=== PATIENT | male | born 1955 | race Caucasian/White ===

== ENCOUNTER 2019-06-05 00:38 | Emergency (ER) | payer MEDICARE, OTHER ==
[~2019-06-05] VITALS: Ht 188 cm; Wt 63.5 kg
--- NOTE | 2019-06-05 01:07 | NUR ---
URINE COLLECTED AND SENT TO LAB. PT PLACED IN GOWN. BELONGINGS COLLECTED AND PLACED IN PATIENT LOCKER. SITTER AT BEDSIDE.
[2019-06-05 01:22] LABS: BASOPHILS # (AUTO) 0.1 /CMM (0.0-0.2); BASOPHILS % (AUTO) 1.1 % (0.0-2.0); EOSINOPHILS % (AUTO) 0.9 % (0.0-6.0); HEMATOCRIT 41 % (39-51); HEMOGLOBIN 13.7 g/dL (13.5-17.5); LYMPHOCYTES # (AUTO) 1.3 /CMM (0.8-4.8); LYMPHOCYTES % (AUTO) 17.8 % (20.0-44.0); MEAN CORPUSCULAR HGB CONC 34 g/dl (31.0-36.0); MEAN CORPUSCULAR VOLUME 90 fL (80-96); MONOCYTES # (AUTO) 0.7 /CMM (0.1-1.30); MONOCYTES % (AUTO) 9.5 % (2.0-12.0); NEUTROPHILS # (AUTO) 5.1 /CMM (1.8-8.9); NEUTROPHILS % (AUTO) 70.7 % (43.0-81.0); PLATELET COUNT (AUTO) 190 /CMM (150-450); RED BLOOD CELL COUNT(AUTO) 4.55 MIL/uL (4.5-6.0); WHITE BLOOD COUNT (AUTO) 7.2 K/uL (4.3-11.0)
--- NOTE | 2019-06-05 01:24 | NUR ---
SITTER AT BEDSIDE
[2019-06-05 01:26] LABS: APPEARANCE,URINE Clear (CLEAR); BILIRUBIN,URINE SMALL (NEGATIVE); BLOOD, URINE Negative Ery/uL (NEGATIVE); COLOR,URINE Yellow (YELLOW); KETONES,URINE Trace (NEGATIVE); LEUKOCYTE ESTERASE ,URINE Negative (NEGATIVE); NITRITE, URINE Negative (NEGATIVE); PH,URINE 6.5 (5.0-8.0); PROTEIN,URINE Trace mg/dl (NEGATIVE); UGLUCOSE Negative (NEGATIVE); UROBILINOGEN,URINE 0.2 EU/dL (0.2)
[2019-06-05] MEDS ORDERED: OLANZAPINE 5 MG TABLET PO ONE (01:30)
[2019-06-05 01:31] LABS: CREATININE 0.8 mg/dL (0.6-1.3)
[2019-06-05] MEDS ORDERED: OLANZAPINE 5 MG TABLET ONE (01:32)
--- NOTE | 2019-06-05 01:39 | NUR ---
PATIENT CAME FROM STREETS TO ER BED 10 C/O SUICIDAL IDEATION. PATIENT STATES THAT HE PLANS "TO DO HIMSELF IN BY DROWNING HIMSELF IN A SINK". AAOX4. NO SOB. BREATHING EVENLY AND UNLABORED. PATIENT STATES THAT HE IS NOT IN ANY DISTRESS. CONNECTED TO MONITOR.
[2019-06-05 01:45] LABS: BILIRUBIN,DIRECT 0.2 mg/dL (0.0-0.2); BILIRUBIN,TOTAL 0.6 mg/dL (0.2-1.0); TOTAL PROTEIN, SERUM 7.6 g/dL (6.4-8.2)
[2019-06-05 01:46] LABS: SALICYLATE 2.2 mg/dL (2.8-20.0)
[2019-06-05 03:21] LABS: BACTERIA,URINE Rare /HPF (None Seen); RBC,URINE 0-2 /HPF (0-2); SQUAMOUS EPITHELIAL CELL,UR Rare /HPF (None Seen); WBC,URINE 0-2 /HPF (0-3)
--- NOTE | 2019-06-05 03:49 | NUR ---
TRANSFER INFORMATION: PT [facility] ACCEPTING MD: DR. MARMOLEJO NUMBER FOR REPORT: [phone]
--- NOTE | 2019-06-05 03:50 | NUR ---
PATIENT IS ASLEEP. EASILY AROUSABLE. NOT IN ANY DISTRESS. CONNECTED TO MONITOR WITH SITTER IN FROM OF BED.
--- NOTE | 2019-06-05 04:02 | NUR ---
REPORT GIVEN TO RN AT UNIT 2 FOR IVONNE. Addendum: 06/05/19 at 0553 by SONNY NURSE NAME IS DEN Barber
--- NOTE | 2019-06-05 04:12 | NUR ---
CALLED [facility] FOR TRANSPORTATION. ETA 0156
[2019-06-05 05:20] VITALS: BP 132/66
--- NOTE | 2019-06-05 06:09 | NUR ---
JOHANNA ARRIVED ON SCENE TO TAKE PATIENT FOR TRANSFER AND IVONNE.
== END 2019-06-05 06:10 | disposition short-term general hospital (02) ==
LOC: ER 00:42
DX: F99 Mental disorder, not otherwise specified (principal); F10.10 Alcohol abuse, uncomplicated; F17.200 Nicotine dependence, unspecified, uncomplicated; F12.10 Cannabis abuse, uncomplicated; F14.10 Cocaine abuse, uncomplicated; Y90.0 Blood alcohol level of less than 20 mg/100 ml
CPT/HCPCS: 36415; 80048; 80076; 80305; 80307; 80329; 81001; 85025; 99285; G0480; 81000-TC

== ENCOUNTER 2019-06-19 00:49 | Emergency (ER) | payer MEDICARE, OTHER ==
[~2019-06-19] VITALS: Ht 182.9 cm; Wt 70.3 kg
[2019-06-19 01:05] LABS: BASOPHILS # (AUTO) 0.1 /CMM (0.0-0.2); BASOPHILS % (AUTO) 1.1 % (0.0-2.0); EOSINOPHILS % (AUTO) 1.7 % (0.0-6.0); HEMATOCRIT 41 % (39-51); HEMOGLOBIN 13.7 g/dL (13.5-17.5); LYMPHOCYTES # (AUTO) 1.4 /CMM (0.8-4.8); LYMPHOCYTES % (AUTO) 21.2 % (20.0-44.0); MEAN CORPUSCULAR HGB CONC 34 g/dl (31.0-36.0); MEAN CORPUSCULAR VOLUME 91 fL (80-96); MONOCYTES # (AUTO) 0.8 /CMM (0.1-1.30); MONOCYTES % (AUTO) 12.8 % (2.0-12.0); NEUTROPHILS # (AUTO) 4.1 /CMM (1.8-8.9); NEUTROPHILS % (AUTO) 63.2 % (43.0-81.0); PLATELET COUNT (AUTO) 220 /CMM (150-450); RED BLOOD CELL COUNT(AUTO) 4.51 MIL/uL (4.5-6.0); WHITE BLOOD COUNT (AUTO) 6.5 K/uL (4.3-11.0)
--- NOTE | 2019-06-19 01:05 | NUR ---
SUBSTANCE ABUSE TECHNICIAN AT BEDSIDE FOR LAB COLLECTION
--- NOTE | 2019-06-19 01:05 | NUR ---
BIBS.AAOX4. AMBULATORY C/O "+SI, WANT TO DROWN MYSELF LIKE MY FRIEND DID." RR EVEN AND UNLABORED. NO ACUTE DISTRESS NOTED.
--- NOTE | 2019-06-19 01:06 | NUR ---
PLACED IN GOWN AND BELONGINGS PLACED IN LOCKER
--- NOTE | 2019-06-19 01:13 | NUR ---
SECURITY CALLED FOR WANDING. PT CLEARED
[2019-06-19 01:14] LABS: CALCIUM, SERUM 9.2 mg/dL (8.5-10.1); CARBON DIOXIDE 31 mmol/L (21-32); CHLORIDE 102 mmol/L (98-107); CREATININE 0.9 mg/dL (0.6-1.3); GLUCOSE 95 mg/dL (74-106); POTASSIUM 4.4 mmol/L (3.5-5.1); SODIUM SERUM 137 mmol/L (136-145); UREA NITROGEN, BLOOD 16 mg/dL (7-18)
--- NOTE | 2019-06-19 01:16 | NUR ---
PLACED ON MONITOR AND PULSE OX. VSS.
--- NOTE | 2019-06-19 01:20 | NUR ---
URINE COLLECTED AND SENT TO LAB
[2019-06-19 01:26] LABS: APPEARANCE,URINE Clear (CLEAR); BILIRUBIN,URINE Negative (NEGATIVE); BLOOD, URINE Negative Ery/uL (NEGATIVE); COLOR,URINE Yellow (YELLOW); KETONES,URINE Trace (NEGATIVE); LEUKOCYTE ESTERASE ,URINE Negative (NEGATIVE); NITRITE, URINE Negative (NEGATIVE); PH,URINE 5.5 (5.0-8.0); PROTEIN,URINE Negative (NEGATIVE); UGLUCOSE Negative (NEGATIVE); UROBILINOGEN,URINE 0.2 EU/dL (0.2)
[2019-06-19 01:32] LABS: ALANINE AMINOTRANSFERASE 81 U/L (12-78); ALBUMIN 3.7 g/dL (3.4-5.0); ALCOHOL, BLOOD < 3 mg/dL (0-0); ALKALINE PHOSPHATASE 71 U/L (46-116); ASPARTATE AMINOTRANSFERASE 34 U/L (15-37); BILIRUBIN,DIRECT 0.2 mg/dL (0.0-0.2); BILIRUBIN,TOTAL 0.5 mg/dL (0.2-1.0); TOTAL PROTEIN, SERUM 7.6 g/dL (6.4-8.2)
[2019-06-19 01:38] LABS: ACETAMINOPHEN 0 ug/ml (10-30); SALICYLATE 2.3 mg/dL (2.8-20.0)
--- NOTE | 2019-06-19 01:44 | NUR ---
PT RESTING, VSS. EASILY AROUSED.
--- NOTE | 2019-06-19 04:08 | NUR ---
Pt accepted to [facility] by Dr Monae. # for report [phone]
--- NOTE | 2019-06-19 05:22 | NUR ---
Helga called for transport. eta >4 hrs.
--- NOTE | 2019-06-19 05:23 | NUR ---
Jamal called for transport. ETA 0103
--- NOTE | 2019-06-19 05:27 | NUR ---
Report given to Toi RAMIREZ for continuation of care.
[2019-06-19 06:17] VITALS: BP 105/64
--- NOTE | 2019-06-19 06:51 | NUR ---
Jamal at bedside for transport.
== END 2019-06-19 06:53 ==
LOC: ER 00:49
DX: R45.851 Suicidal ideations (principal); F10.10 Alcohol abuse, uncomplicated; F17.200 Nicotine dependence, unspecified, uncomplicated; F12.10 Cannabis abuse, uncomplicated; F14.10 Cocaine abuse, uncomplicated; Y90.0 Blood alcohol level of less than 20 mg/100 ml
CPT/HCPCS: 36415; 80048; 80076; 80305; 80307; 80329; 81001; 85025; 99285; G0480; 81000-TC

== ENCOUNTER 2019-07-08 22:50 | Emergency (ER) | payer MEDICARE, OTHER ==
[~2019-07-08] VITALS: Ht 188 cm; Wt 68.0 kg
--- NOTE | 2019-07-09 02:14 | NUR ---
BIBS W/ C/O SI AND PALN TO DROWN HIMSELF IN WATER. PT WAS GOWNED UP. ALL BELONGINGS WERE TAKEN IN SAFE . PLACED ON A MONITOR AND CLOSE OBSERVATION. WILL CONT TO MONITOR,
[2019-07-09 02:42] LABS: BASOPHILS # (AUTO) 0.1 /CMM (0.0-0.2); EOSINOPHILS % (AUTO) 2.6 % (0.0-6.0); HEMATOCRIT 39 % (39-51); HEMOGLOBIN 13.1 g/dL (13.5-17.5); LYMPHOCYTES # (AUTO) 1.3 /CMM (0.8-4.8); LYMPHOCYTES % (AUTO) 26.7 % (20.0-44.0); MEAN CORPUSCULAR HGB CONC 34 g/dl (31.0-36.0); MEAN CORPUSCULAR VOLUME 90 fL (80-96); MONOCYTES # (AUTO) 0.7 /CMM (0.1-1.30); MONOCYTES % (AUTO) 14.2 % (2.0-12.0); NEUTROPHILS # (AUTO) 2.8 /CMM (1.8-8.9); NEUTROPHILS % (AUTO) 55.5 % (43.0-81.0); PLATELET COUNT (AUTO) 181 /CMM (150-450)
[2019-07-09 02:47] LABS: APPEARANCE,URINE CLEAR (CLEAR); BILIRUBIN,URINE NEGATIVE (NEGATIVE); BLOOD, URINE NEGATIVE Ery/uL (NEGATIVE); COLOR,URINE YELLOW (YELLOW); KETONES,URINE NEGATIVE (NEGATIVE); LEUKOCYTE ESTERASE ,URINE NEGATIVE (NEGATIVE); NITRITE, URINE NEGATIVE (NEGATIVE); PH,URINE 5.5 (5.0-8.0); PROTEIN,URINE NEGATIVE (NEGATIVE); UGLUCOSE NEGATIVE (NEGATIVE); UROBILINOGEN,URINE 0.2 EU/dL (0.2)
[2019-07-09 02:50] LABS: CALCIUM, SERUM 8.4 mg/dL (8.5-10.1); CARBON DIOXIDE 32 mmol/L (21-32); CHLORIDE 101 mmol/L (98-107); CREATININE 1.2 mg/dL (0.6-1.3); GLUCOSE 130 mg/dL (74-106); POTASSIUM 3.8 mmol/L (3.5-5.1); SODIUM SERUM 138 mmol/L (136-145); UREA NITROGEN, BLOOD 21 mg/dL (7-18)
[2019-07-09 02:54] LABS: ACETAMINOPHEN 0 ug/ml (10-30); ALANINE AMINOTRANSFERASE 78 U/L (12-78); ALBUMIN 3.5 g/dL (3.4-5.0); ALCOHOL, BLOOD < 3 mg/dL (0-0); ALKALINE PHOSPHATASE 74 U/L (46-116); ASPARTATE AMINOTRANSFERASE 80 U/L (15-37); BILIRUBIN,DIRECT 0.2 mg/dL (0.0-0.2); BILIRUBIN,TOTAL 0.5 mg/dL (0.2-1.0); SALICYLATE 1.8 mg/dL (2.8-20.0); TOTAL PROTEIN, SERUM 6.8 g/dL (6.4-8.2)
--- NOTE | 2019-07-09 06:40 | NUR ---
PT IN BED SLEEPING. NAD NOTED. EASILY ARROUSABLE. 1:1 SITTER AT BEDSIDE
--- NOTE | 2019-07-09 08:25 | NUR ---
SALES SOLUTIONS REPRESENTATIVE followed up with [facility] intake regarding pt.being referred to them. Per Sheri in intake, there is no bed availability at this time, pending discharges.
--- NOTE | 2019-07-09 10:18 | NUR ---
CALLED [facility] FOR TRANSPORT TO [facility]. ETA 15 MINUTES.
--- NOTE | 2019-07-09 10:37 | NUR ---
FAX NUMBER FOR [facility]. [phone].
[2019-07-09 11:23] VITALS: BP 115/71
--- NOTE | 2019-07-09 11:26 | NUR ---
patient picked up by private ambulance going to [facility] in no distress.
== END 2019-07-09 11:26 ==
LOC: ER 23:04
DX: R45.851 Suicidal ideations (principal); F17.200 Nicotine dependence, unspecified, uncomplicated; Z98.890 Other specified postprocedural states
CPT/HCPCS: 36415; 80048; 80076; 80305; 80307; 80329; 81001; 85025; 99285; 99406; G0480; 81000-TC

== ENCOUNTER 2019-07-18 01:00 | Emergency (ER) | payer MEDICARE, OTHER ==
[~2019-07-18] VITALS: Ht 188 cm; Wt 68.0 kg
--- NOTE | 2019-07-18 01:05 | NUR ---
PT AAOX4. BIBSELF. C/O SI WITH PLAN TO DROWN SELF IN BUCKET OF WATER. DENIES HI. VSS. PLACED IN GOWN. BELONINGS PLACED IN LOCKER.
--- NOTE | 2019-07-18 01:52 | NUR ---
Ken valencia in [facility] - 07/18/19 at 0253 by STAN URINE COLLECTED AND SENT TO LAB
[2019-07-18 01:55] LABS: BASOPHILS # (AUTO) 0.1 /CMM (0.0-0.2); EOSINOPHILS % (AUTO) 0.2 % (0.0-6.0); HEMATOCRIT 47 % (39-51); HEMOGLOBIN 15.8 g/dL (13.5-17.5); LYMPHOCYTES # (AUTO) 1.6 /CMM (0.8-4.8); LYMPHOCYTES % (AUTO) 21.4 % (20.0-44.0); MEAN CORPUSCULAR HGB CONC 34 g/dl (31.0-36.0); MEAN CORPUSCULAR VOLUME 90 fL (80-96); MONOCYTES # (AUTO) 0.8 /CMM (0.1-1.30); NEUTROPHILS # (AUTO) 5.1 /CMM (1.8-8.9); NEUTROPHILS % (AUTO) 67.4 % (43.0-81.0); PLATELET COUNT (AUTO) 256 /CMM (150-450); RED BLOOD CELL COUNT(AUTO) 5.17 MIL/uL (4.5-6.0); WHITE BLOOD COUNT (AUTO) 7.6 K/uL (4.3-11.0)
[2019-07-18] MEDS ORDERED: LORAZEPAM 1 MG TABLET ONE (01:55)
[2019-07-18] MEDS ORDERED: ONDANSETRON 4 MG TAB.RAPDIS ONE (02:00)
[2019-07-18] MEDS ORDERED: ONDANSETRON 4 MG TAB.RAPDIS PO ONE (02:00)
[2019-07-18] MEDS ORDERED: LORAZEPAM 1 MG TABLET PO ONE (02:00)
[2019-07-18] MEDS ORDERED: OLANZAPINE 5 MG TABLET PO ONE (02:00)
[2019-07-18 02:06] LABS: CALCIUM, SERUM 10.2 mg/dL (8.5-10.1); CARBON DIOXIDE 29 mmol/L (21-32); CHLORIDE 100 mmol/L (98-107); GLUCOSE 118 mg/dL (74-106); POTASSIUM 4.1 mmol/L (3.5-5.1); SODIUM SERUM 141 mmol/L (136-145); UREA NITROGEN, BLOOD 19 mg/dL (7-18)
[2019-07-18 02:16] LABS: ACETAMINOPHEN 0 ug/ml (10-30); ALANINE AMINOTRANSFERASE 77 U/L (12-78); ALBUMIN 4.5 g/dL (3.4-5.0); ALCOHOL, BLOOD < 3 mg/dL (0-0); ALKALINE PHOSPHATASE 80 U/L (46-116); ASPARTATE AMINOTRANSFERASE 36 U/L (15-37); BILIRUBIN,DIRECT 0.3 mg/dL (0.0-0.2); BILIRUBIN,TOTAL 0.9 mg/dL (0.2-1.0); SALICYLATE 1.3 mg/dL (2.8-20.0); TOTAL PROTEIN, SERUM 8.8 g/dL (6.4-8.2)
--- NOTE | 2019-07-18 02:53 | NUR ---
URINE COLLECTED AND SENT TO LAB
[2019-07-18 03:52] LABS: APPEARANCE,URINE Clear (CLEAR); BILIRUBIN,URINE Negative (NEGATIVE); BLOOD, URINE Negative Ery/uL (NEGATIVE); COLOR,URINE Yellow (YELLOW); KETONES,URINE 80 (NEGATIVE); LEUKOCYTE ESTERASE ,URINE Negative (NEGATIVE); NITRITE, URINE Negative (NEGATIVE); PROTEIN,URINE 30 mg/dl (NEGATIVE); UGLUCOSE Negative (NEGATIVE); UROBILINOGEN,URINE 0.2 EU/dL (0.2)
[2019-07-18 04:14] LABS: BACTERIA,URINE Few /HPF (None Seen); RBC,URINE 0-2 /HPF (0-2); SQUAMOUS EPITHELIAL CELL,UR Rare /HPF (None Seen)
--- NOTE | 2019-07-18 06:15 | NUR ---
PT ASLEEP, NO ACUTE DISTRESS NOTED, RESP EVEN AND UNLABORED. CALL LIGHT WITHIN REACH. WILL CONTINUE TO MONITOR PT CLOSELY.
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
[2019-07-18 12:00] VITALS: BP 132/80
--- NOTE | 2019-07-18 12:00 | NUR ---
pt aaox4, pt denies any s/i or h/i, -sob, pt in stable condition, pt verbalizes wanting to leave, dr. shahid made aware. per . he will write d/c aci.
--- NOTE | 2019-07-18 12:15 | NUR ---
Patient discharged to home in stable condition. Written and verbal after care instructions given. Patient verbalizes understanding of instruction.
== END 2019-07-18 13:17 | disposition home or self-care (01) ==
LOC: ER 01:00
DX: F19.159 Other psychoactive substance abuse with psychoactive substance-induced psychotic disorder, unspecified (principal); R45.851 Suicidal ideations; F10.10 Alcohol abuse, uncomplicated; F17.200 Nicotine dependence, unspecified, uncomplicated; F12.10 Cannabis abuse, uncomplicated; F14.10 Cocaine abuse, uncomplicated; Y90.0 Blood alcohol level of less than 20 mg/100 ml; Z98.890 Other specified postprocedural states
CPT/HCPCS: 36415; 80048; 80076; 80305; 80307; 80329; 81001; 85025; 99284; G0480; Q0162; 81000-TC

== ENCOUNTER 2019-07-18 21:04 | Emergency (ER) | payer MEDICARE, OTHER ==
[~2019-07-18] VITALS: Ht 188 cm; Wt 68.0 kg
--- NOTE | 2019-07-18 21:05 | NUR ---
TO ER BED 14 AMBULATORY C/O SI WITH PLAN TO "DROWN SELF WITH 12OZ OF WATER". PT CALM AND COOPERATIVE AT THIS TIME. PLACE PT ON HOSPITAL GOWN, ALL BELONGINGS REMOVED FROM ROOM AND BELONGIGNS PLACED IN HOSPITAL LOCKER. 1:1 SITTER AT BEDSIDE FOR PT SAFETY.
--- NOTE | 2019-07-18 22:30 | NUR ---
LAB SYSTEMS ANALYST AT BEDSIDE FOR BLOOD DRAW.
[2019-07-18 22:35] LABS: BASOPHILS # (AUTO) 0.1 /CMM (0.0-0.2); BASOPHILS % (AUTO) 0.9 % (0.0-2.0); EOSINOPHILS % (AUTO) 0.3 % (0.0-6.0); HEMATOCRIT 45 % (39-51); HEMOGLOBIN 14.9 g/dL (13.5-17.5); LYMPHOCYTES # (AUTO) 1.7 /CMM (0.8-4.8); LYMPHOCYTES % (AUTO) 23.5 % (20.0-44.0); MEAN CORPUSCULAR HGB CONC 34 g/dl (31.0-36.0); MEAN CORPUSCULAR VOLUME 91 fL (80-96); MONOCYTES # (AUTO) 0.8 /CMM (0.1-1.30); MONOCYTES % (AUTO) 10.4 % (2.0-12.0); NEUTROPHILS # (AUTO) 4.7 /CMM (1.8-8.9); NEUTROPHILS % (AUTO) 64.9 % (43.0-81.0); PLATELET COUNT (AUTO) 236 /CMM (150-450); RED BLOOD CELL COUNT(AUTO) 4.88 MIL/uL (4.5-6.0); WHITE BLOOD COUNT (AUTO) 7.2 K/uL (4.3-11.0)
--- NOTE | 2019-07-18 22:39 | NUR ---
URINE SAMPLE COLLECTED AND SENT TO LAB.
[2019-07-18 22:43] LABS: CALCIUM, SERUM 9.4 mg/dL (8.5-10.1); CARBON DIOXIDE 33 mmol/L (21-32); CHLORIDE 99 mmol/L (98-107); GLUCOSE 95 mg/dL (74-106); POTASSIUM 3.4 mmol/L (3.5-5.1); SODIUM SERUM 137 mmol/L (136-145); UREA NITROGEN, BLOOD 18 mg/dL (7-18)
[2019-07-18 22:46] LABS: APPEARANCE,URINE Clear (CLEAR); BILIRUBIN,URINE SMALL (NEGATIVE); BLOOD, URINE Negative Ery/uL (NEGATIVE); COLOR,URINE Yellow (YELLOW); KETONES,URINE Trace (NEGATIVE); LEUKOCYTE ESTERASE ,URINE Negative (NEGATIVE); NITRITE, URINE Negative (NEGATIVE); PH,URINE 5.5 (5.0-8.0); PROTEIN,URINE 30 mg/dl (NEGATIVE); UGLUCOSE Negative (NEGATIVE)
[2019-07-18 22:51] LABS: ALANINE AMINOTRANSFERASE 70 U/L (12-78); ALBUMIN 4.1 g/dL (3.4-5.0); ALCOHOL, BLOOD < 3 mg/dL (0-0); ALKALINE PHOSPHATASE 76 U/L (46-116); ASPARTATE AMINOTRANSFERASE 30 U/L (15-37); BILIRUBIN,DIRECT 0.2 mg/dL (0.0-0.2); BILIRUBIN,TOTAL 0.6 mg/dL (0.2-1.0); TOTAL PROTEIN, SERUM 8.2 g/dL (6.4-8.2)
[2019-07-18 23:19] LABS: SALICYLATE 1.4 mg/dL (2.8-20.0)
[2019-07-18 23:28] LABS: BACTERIA,URINE Few /HPF (None Seen); RBC,URINE 0-2 /HPF (0-2); SQUAMOUS EPITHELIAL CELL,UR Rare /HPF (None Seen)
--- NOTE | 2019-07-19 02:38 | NUR ---
PT ASLEEP, NO ACUTE DISTRESS NOTED, RESP EVEN AND UNLABORED. CALL LIGHT WITHIN REACH. WILL CONTINEU TO MONITOR PT CLOSELY.
--- NOTE | 2019-07-19 03:52 | NUR ---
PT [facility]PTED TO [facility] BY DR MARMOLEJO. UNIT 1. BED AVAILABLE AFTER 07. # FOR REPORT [phone]
--- NOTE | 2019-07-19 04:33 | NUR ---
PT AAOX4, NO ACUTE DISTRESS NOTED, RESP EVEN AND UNLABORED. CALL LIGHT WITHIN REACH. WILL CONT TO MONITOR PT CLOSELY.
--- NOTE | 2019-07-19 06:29 | NUR ---
JOH[facility] ETA 08
[2019-07-19] MEDS ORDERED: ONDANSETRON 4 MG TAB.RAPDIS ONE (08:22)
[2019-07-19] MEDS: ONDANSETRON 4 MG TAB.RAPDIS SL ONE (08:33)
--- NOTE | 2019-07-19 08:33 | NUR ---
Patient picked up by [facility] Unit 43 in stable condition. Patient will be brought to [facility]. Written and verbal after care instructions given. Patient verbalizes understanding of instruction.
[2019-07-19 08:34] VITALS: BP 162/96
== END 2019-07-19 08:35 ==
LOC: ER 21:07
DX: R45.851 Suicidal ideations (principal); F19.10 Other psychoactive substance abuse, uncomplicated; F17.200 Nicotine dependence, unspecified, uncomplicated; Z98.890 Other specified postprocedural states
CPT/HCPCS: 36415; 80048; 80076; 80305; 80307; 80329; 81001; 85025; 87086; 99285; G0480; Q0162; 81000-TC

== ENCOUNTER 2019-10-01 00:49 | Emergency (ER) | payer MEDICARE, OTHER ==
[~2019-10-01] VITALS: Ht 188 cm; Wt 68.0 kg
--- NOTE | 2019-10-01 01:07 | NUR ---
PATIENT CAME TO ER BED 11 C/O SUICIDAL IDEATION PLANS TO CHOKE HIMSELF WITH PEPSI CAN. PATIENT'S BELONGING AND CLOTHINGS ARE REMOVED AND PLACED INTO A LOCKER. PATIENT IS CHANGED INTO A GOWN. AAOX3. NO SOB. BREATHING EVENLY AND UNLABORED ON ROOM AIR. CONNECTED TO MONITOR. SITTER AT BEDSIDE.
--- NOTE | 2019-10-01 01:17 | NUR ---
ENVIRONMENTAL TECHNICAL OFFICER AT BEDSIDE FOR BLOOD DRAW.
--- NOTE | 2019-10-01 01:18 | NUR ---
Ken valencia in [facility] - 10/01/19 at 0120 by MARIA DE JESUS MEDICATION MANAGER AT BEDSIDE FOR BLOOD DRAW
[2019-10-01 01:21] LABS: BASOPHILS # (AUTO) 0.2 /CMM (0.0-0.2); BASOPHILS % (AUTO) 2.2 % (0.0-2.0); EOSINOPHILS % (AUTO) 1.4 % (0.0-6.0); HEMATOCRIT 42 % (39-51); LYMPHOCYTES # (AUTO) 1.4 /CMM (0.8-4.8); LYMPHOCYTES % (AUTO) 19.5 % (20.0-44.0); MEAN CORPUSCULAR HGB CONC 33 g/dl (31.0-36.0); MEAN CORPUSCULAR VOLUME 89 fL (80-96); MONOCYTES # (AUTO) 0.9 /CMM (0.1-1.30); MONOCYTES % (AUTO) 12.1 % (2.0-12.0); NEUTROPHILS # (AUTO) 4.6 /CMM (1.8-8.9); NEUTROPHILS % (AUTO) 64.8 % (43.0-81.0); PLATELET COUNT (AUTO) 184 /CMM (150-450); RED BLOOD CELL COUNT(AUTO) 4.71 MIL/uL (4.5-6.0); WHITE BLOOD COUNT (AUTO) 7.1 K/uL (4.3-11.0)
[2019-10-01 01:28] LABS: CALCIUM, SERUM 9.1 mg/dL (8.5-10.1); CREATININE 0.9 mg/dL (0.6-1.3); POTASSIUM 3.5 mmol/L (3.5-5.1)
[2019-10-01 01:33] LABS: BILIRUBIN,DIRECT 0.3 mg/dL (0.0-0.2); BILIRUBIN,TOTAL 0.7 mg/dL (0.2-1.0); SALICYLATE 0.7 mg/dL (2.8-20.0)
[2019-10-01 01:46] LABS: APPEARANCE,URINE Clear (CLEAR); BILIRUBIN,URINE SMALL (NEGATIVE); BLOOD, URINE Negative Ery/uL (NEGATIVE); KETONES,URINE 15 (NEGATIVE); LEUKOCYTE ESTERASE ,URINE Negative (NEGATIVE); NITRITE, URINE Negative (NEGATIVE); PROTEIN,URINE 100 mg/dl (NEGATIVE); UGLUCOSE Negative (NEGATIVE)
[2019-10-01 02:17] LABS: COLOR,URINE DARK YELLOW (YELLOW)
[2019-10-01 02:18] LABS: BACTERIA,URINE None seen /HPF (None Seen); CALCIUM OXALATE CRYSTALS,UR Few /HPF (None Seen); RBC,URINE 0-2 /HPF (0-2); SQUAMOUS EPITHELIAL CELL,UR Few /HPF (None Seen); URINE AMORPHOUS URATE Few /HPF (None Seen); WBC,URINE 0-2 /HPF (0-3)
[2019-10-01 02:19] LABS: MUCUS,URINE Few /LPF (None Seen); SPERM,URINE Many /HPF (None Seen)
--- NOTE | 2019-10-01 02:23 | NUR ---
PATIENT AMBULATED TO THE RESTROOM WITH STEADY GAIT.
[2019-10-01] MEDS ORDERED: LORAZEPAM 1 MG TABLET PO ONE (03:00)
[2019-10-01] MEDS ORDERED: LORAZEPAM 1 MG TABLET ONE (03:25)
--- NOTE | 2019-10-01 03:36 | NUR ---
PT ACC[facility]PTED [facility] ACCEPTING MD: DR. MARMOLEJO NUMBER FOR REPORT: [phone] PER CJ FROM [facility] INTAKE, REQUESTING TO SEND PT TO FACILITY AFTER 0700
--- NOTE | 2019-10-01 03:43 | NUR ---
CALLED [facility] FOR TRANSPORTATION. HIDE TANNER 0700
--- NOTE | 2019-10-01 07:51 | NUR ---
Patient left the facility in stable condition. Needs attended. Report given to EMT.
[2019-10-01 07:52] VITALS: BP 101/69
== END 2019-10-01 07:52 ==
LOC: ER 00:49
DX: R45.851 Suicidal ideations (principal); F19.10 Other psychoactive substance abuse, uncomplicated; F32.9 Major depressive disorder, single episode, unspecified; Z98.890 Other specified postprocedural states
CPT/HCPCS: 36415; 80048; 80076; 80305; 80307; 80329; 81001; 85025; 99285; G0480; 81000-TC

== ENCOUNTER 2019-10-12 02:54 | Emergency (ER) | payer MEDICARE, OTHER ==
--- NOTE | 2019-10-12 03:47 | NUR ---
CALLED PT TO BE TRIAGED. PT STATES "I DON'T NEED A DOCTOR, I JUST WANT TO WAIT IN THE WAITING ROOM UNTIL THE MORNING"
== END 2019-10-12 03:55 | disposition left against medical advice (07) ==
LOC: ER 02:54
DX: Z53.21 Procedure and treatment not carried out due to patient leaving prior to being seen by health care provider (principal)

== ENCOUNTER 2019-10-14 23:01 | Emergency (ER) | payer MEDICARE, OTHER ==
[~2019-10-14] VITALS: Ht 188 cm; Wt 68.0 kg
--- NOTE | 2019-10-14 23:06 | NUR ---
PT CAME TO THE C/O SUICIDAL IDEATION W A PLAN TO DROWN HIMSELF. PT DENIES HI. PT ADMITS TO COCAINE USE YESTERDAY. PT CHANGED INTO GOWN, BELONGINGS PLACED TO THE LOCKER, PLACED ON SAFETY PRECAUTIONS. SITTER AT BEDSIDE FOR CONSTANT OBSERVATION
[2019-10-15 00:10] LABS: BASOPHILS # (AUTO) 0.1 /CMM (0.0-0.2); BASOPHILS % (AUTO) 0.7 % (0.0-2.0); EOSINOPHILS % (AUTO) 0.5 % (0.0-6.0); HEMATOCRIT 45 % (39-51); HEMOGLOBIN 15.2 g/dL (13.5-17.5); LYMPHOCYTES # (AUTO) 1.4 /CMM (0.8-4.8); LYMPHOCYTES % (AUTO) 20.5 % (20.0-44.0); MEAN CORPUSCULAR HGB CONC 34 g/dl (31.0-36.0); MEAN CORPUSCULAR VOLUME 89 fL (80-96); MONOCYTES # (AUTO) 0.7 /CMM (0.1-1.30); MONOCYTES % (AUTO) 9.7 % (2.0-12.0); NEUTROPHILS # (AUTO) 4.8 /CMM (1.8-8.9); NEUTROPHILS % (AUTO) 68.6 % (43.0-81.0); PLATELET COUNT (AUTO) 225 /CMM (150-450); RED BLOOD CELL COUNT(AUTO) 5.03 MIL/uL (4.5-6.0)
--- NOTE | 2019-10-15 00:10 | NUR ---
DISTRIBUTING CLERK AT BEDSIDE FOR BLOOD DRAW
[2019-10-15 00:29] LABS: CALCIUM, SERUM 9.6 mg/dL (8.5-10.1); CARBON DIOXIDE 32 mmol/L (21-32); CHLORIDE 97 mmol/L (98-107); GLUCOSE 124 mg/dL (74-106); POTASSIUM 4.1 mmol/L (3.5-5.1); SODIUM SERUM 136 mmol/L (136-145); UREA NITROGEN, BLOOD 11 mg/dL (7-18)
[2019-10-15 00:33] LABS: ALANINE AMINOTRANSFERASE 68 U/L (12-78); ALBUMIN 4.3 g/dL (3.4-5.0); ALKALINE PHOSPHATASE 83 U/L (46-116); ASPARTATE AMINOTRANSFERASE 33 U/L (15-37); BILIRUBIN,DIRECT 0.2 mg/dL (0.0-0.2); BILIRUBIN,TOTAL 0.8 mg/dL (0.2-1.0); TOTAL PROTEIN, SERUM 8.8 g/dL (6.4-8.2)
[2019-10-15 00:34] LABS: ACETAMINOPHEN 0 ug/ml (10-30); ALCOHOL, BLOOD < 3 mg/dL (0-0); SALICYLATE 0.9 mg/dL (2.8-20.0)
[2019-10-15] MEDS ORDERED: ONDANSETRON 4 MG TAB.RAPDIS ONE (01:19)
[2019-10-15] MEDS ORDERED: ONDANSETRON 4 MG TAB.RAPDIS SL ONE (01:30)
[2019-10-15] MEDS ORDERED: MAGNESIUM HYDROXIDE 30 ML UDC ONE (01:58)
[2019-10-15] MEDS ORDERED: MAGNESIUM HYDROXIDE 30 ML UDC PO ONE (02:00)
--- NOTE | 2019-10-15 03:34 | NUR ---
PT STILL UNABLE TO PROVIDE URINE SAMPLE AT THIS TIME. MD ZAMUDIO
[2019-10-15 04:22] VITALS: BP 151/74
--- NOTE | 2019-10-15 04:22 | NUR ---
URINE COLLECTED AND SENT TO LAB
[2019-10-15 04:43] LABS: APPEARANCE,URINE Clear (CLEAR); BILIRUBIN,URINE MODERATE (NEGATIVE); BLOOD, URINE Negative Ery/uL (NEGATIVE); COLOR,URINE Dark (YELLOW); KETONES,URINE 40 (NEGATIVE); LEUKOCYTE ESTERASE ,URINE Negative (NEGATIVE); NITRITE, URINE Negative (NEGATIVE); PROTEIN,URINE 100 mg/dl (NEGATIVE); UGLUCOSE Negative (NEGATIVE)
[2019-10-15 04:59] LABS: BACTERIA,URINE None seen /HPF (None Seen); RBC,URINE 0-2 /HPF (0-2); SQUAMOUS EPITHELIAL CELL,UR Few /HPF (None Seen); WBC,URINE 0-2 /HPF (0-3)
--- NOTE | 2019-10-15 05:15 | NUR ---
Note annie in ED - 10/15/19 at 0515 by MANE PT ASLEEP, NO ACUTE DISTRESS NOTED, RESP EVEN AND UNLABORED. CALL LIGHT WITHIN REACH. WILL CON
--- NOTE | 2019-10-15 05:15 | NUR ---
PT ASLEEP, NO ACUTE DISTRESS NOTED, RESP EVEN AND UNLABORED. CALL LIGHT WITHIN REACH. WILL CONTINUE TO MONITOR PT CLOSELY. 1:1 SITTER AT BEDSIDE.
--- NOTE | 2019-10-15 08:54 | NUR ---
Social service consult requested by MD for voluntary psychiatric admission. Upon chart review and MD notes, pt is a 64-year-old male who would like to go to a voluntary psychiatric hospital and states he is suicidal with a plan to drown himself, abuses cocaine with last use yesterday, and reports helplessness and hopelessness. TRAFFIC CONTROL SIGNALER met with the pt bedside. TRAFFIC CONTROL SIGNALER introduced self and explained the purpose of the visit. Pt is alert and oriented x 4. Pt appears disheveled. Pt's mood is congruent. Pt states he is homeless and has been for the past 5 years. Pt received SSI and SSDI monthly. Pt has a history of psychiatric illness and hospitalizations. Per pt. he has a history of Depression, Schizophrenia and Bipolar. Pt' s current medications include Seroquel. Pt has a history of drug use and abuses cocaine and alcohol. Pt reports to have drank two 16 oz bottles of wine. Pt. last used cocaine 3 days ago. Pt reports to have suicidal ideations with a plan to drown himself. TRAFFIC CONTROL SIGNALER to refer pt to [facility] for voluntary psychiatric admission. Pt smokes up to 25 cigarettes per day. TRAFFIC CONTROL SIGNALER contacted Cruz at [facility] and referred pt for voluntary admission. Clinicals faxed to [facility] intake dept.
--- NOTE | 2019-10-15 10:12 | NUR ---
RECIEVED A CALL FROM MERGED WITH [facility] FROM [facility]. PT HAS BEEN ACCEPTED BUT WAITING FOR MORNING DISCHARGES BEFORE PROVIDING BED NUMBERS. WILL CALL BACK WHEN ITS A GOOD TIME TO GIVE REPORT.
--- NOTE | 2019-10-15 10:16 | NUR ---
GOT OFF THE PHONE WITH FRAN FROM [facility]. PT WILL BE GOING TO ROOM 203B. UNIT . ASK TO BE CONNECTED TO UNIT [address] EL[address]ALDE AND DR. MARMOLEJO ARE THE ACCEPTING.
--- NOTE | 2019-10-15 12:01 | NUR ---
CALLED [facility] FOR TRANSPORT TO [facility]. ETA 1330.
--- NOTE | 2019-10-15 14:21 | NUR ---
[facility]
== END 2019-10-15 14:23 ==
LOC: ER 23:02
DX: F32.9 Major depressive disorder, single episode, unspecified (principal); R45.851 Suicidal ideations; F14.10 Cocaine abuse, uncomplicated; R11.0 Nausea; F17.210 Nicotine dependence, cigarettes, uncomplicated; Z98.890 Other specified postprocedural states
CPT/HCPCS: 36415; 80048; 80076; 80305; 80307; 80329; 81001; 85025; 99285; 99406; G0480; J7030; Q0162; 81000-TC

== ENCOUNTER 2019-11-07 01:39 | Emergency (ER) | payer MEDICARE, OTHER ==
[~2019-11-07] VITALS: Ht 188 cm; Wt 79.8 kg
--- NOTE | 2019-11-07 01:50 | NUR ---
PT CAME TO THE ED C/O SI W/ A PLAN TO DROWN HIMSELF. PT AAOX3, RESPPIRATIONS EVEN AND UNLABORED ON RA W/ NAD NOTED. PT CHANGED INTO GOWN, BELONGINGS TO LOCKER, AND PT PLACED ON SUICIDE PRECAUTIONS. SITTER AT BEDSIDE FOR SAFETY
--- NOTE | 2019-11-07 02:03 | NUR ---
URINE COLLECTED AND SENT TO LAB
[2019-11-07 02:19] LABS: APPEARANCE,URINE Clear (CLEAR); BILIRUBIN,URINE MODERATE (NEGATIVE); BLOOD, URINE Negative Ery/uL (NEGATIVE); COLOR,URINE Yellow (YELLOW); KETONES,URINE Trace (NEGATIVE); LEUKOCYTE ESTERASE ,URINE Negative (NEGATIVE); NITRITE, URINE Negative (NEGATIVE); PH,URINE 5.5 (5.0-8.0); PROTEIN,URINE 30 mg/dl (NEGATIVE); UGLUCOSE Negative (NEGATIVE); UROBILINOGEN,URINE 0.2 EU/dL (0.2)
[2019-11-07 02:33] LABS: BASOPHILS # (AUTO) 0.1 /CMM (0.0-0.2); BASOPHILS % (AUTO) 1.1 % (0.0-2.0); EOSINOPHILS % (AUTO) 2.6 % (0.0-6.0); HEMATOCRIT 44 % (39-51); HEMOGLOBIN 14.9 g/dL (13.5-17.5); LYMPHOCYTES % (AUTO) 15.3 % (20.0-44.0); MEAN CORPUSCULAR HGB CONC 34 g/dl (31.0-36.0); MEAN CORPUSCULAR VOLUME 88 fL (80-96); MONOCYTES # (AUTO) 0.9 /CMM (0.1-1.30); MONOCYTES % (AUTO) 13.1 % (2.0-12.0); NEUTROPHILS # (AUTO) 4.6 /CMM (1.8-8.9); NEUTROPHILS % (AUTO) 67.9 % (43.0-81.0); PLATELET COUNT (AUTO) 199 /CMM (150-450); RED BLOOD CELL COUNT(AUTO) 4.99 MIL/uL (4.5-6.0); WHITE BLOOD COUNT (AUTO) 6.7 K/uL (4.3-11.0)
[2019-11-07 02:35] LABS: BACTERIA,URINE Few /HPF (None Seen); CALCIUM OXALATE CRYSTALS,UR Moderate /HPF (None Seen); RBC,URINE 0-2 /HPF (0-2); SQUAMOUS EPITHELIAL CELL,UR Rare /HPF (None Seen)
[2019-11-07 02:45] LABS: ALANINE AMINOTRANSFERASE 150 U/L (12-78); ALBUMIN 4.2 g/dL (3.4-5.0); ALCOHOL, BLOOD < 3 mg/dL (0-0); ALKALINE PHOSPHATASE 74 U/L (46-116); ASPARTATE AMINOTRANSFERASE 108 U/L (15-37); BILIRUBIN,DIRECT 0.3 mg/dL (0.0-0.2); BILIRUBIN,TOTAL 0.7 mg/dL (0.2-1.0); CALCIUM, SERUM 9.2 mg/dL (8.5-10.1); CARBON DIOXIDE 31 mmol/L (21-32); CHLORIDE 97 mmol/L (98-107); CREATININE 1.2 mg/dL (0.6-1.3); GLUCOSE 114 mg/dL (74-106); POTASSIUM 4.1 mmol/L (3.5-5.1); SODIUM SERUM 137 mmol/L (136-145); TOTAL PROTEIN, SERUM 7.7 g/dL (6.4-8.2); UREA NITROGEN, BLOOD 17 mg/dL (7-18)
[2019-11-07 02:49] LABS: ACETAMINOPHEN 0 ug/ml (10-30); SALICYLATE 2.5 mg/dL (2.8-20.0)
[2019-11-07] MEDS ORDERED: OLANZAPINE 5 MG TABLET PO ONE (03:00)
[2019-11-07] MEDS ORDERED: LORAZEPAM 1 MG TABLET PO ONE (03:00)
[2019-11-07] MEDS ORDERED: LORAZEPAM 1 MG TABLET ONE (03:02)
[2019-11-07] MEDS ORDERED: OLANZAPINE 5 MG TABLET ONE (03:02)
--- NOTE | 2019-11-07 03:18 | NUR ---
DR YIN AT BEDSIDE
--- NOTE | 2019-11-07 03:22 | NUR ---
CLINICAL FAXED TO [facility] FOR VOLUNTARY ADMISSION.
--- NOTE | 2019-11-07 04:35 | NUR ---
SPOKE W/ ROSA ELENA FOR MORE CLINICAL INFORMATION. ROSA ELENA FROM [facility] WILL CALL BACK IF THEY WILL ACCEPT THE PATIENT.
--- NOTE | 2019-11-07 05:26 | NUR ---
pt got accepted and [facility] by Dr. Monae in unit 1 # for report: [phone] CM: [phone]
--- NOTE | 2019-11-07 06:35 | NUR ---
PT SLEEPING AND RESTING COMFORTABLY. NO ACUTE DISTRESS NOTED. WILL CONTINUE TO MONITOR. SITTER AT BEDSIDE
--- NOTE | 2019-11-07 07:58 | NUR ---
REPORT GIVEN TO CAROLYN. AWAITING HOSPITAL TRANSPORT.
--- NOTE | 2019-11-07 08:13 | NUR ---
CALLED [facility] FOR TRANSPORT TO [facility]. ETA 30 MINUTES.
--- NOTE | 2019-11-07 09:04 | NUR ---
REPORT GIVEN TO BIODIESEL PRODUCTION ASSOCIATE. PATIENT A/OX4, BREATHING EVEN AND UNLABORED, NO SOB NOTED. STABLE CONDITION. LEFT THE FACILITY AND TRANSFERRED TO [facility].
[2019-11-07 09:05] VITALS: BP 126/74
== END 2019-11-07 09:05 ==
LOC: ER 01:41
DX: F15.10 Other stimulant abuse, uncomplicated (principal); F32.9 Major depressive disorder, single episode, unspecified; R45.851 Suicidal ideations; F14.10 Cocaine abuse, uncomplicated; R45.1 Restlessness and agitation; F17.210 Nicotine dependence, cigarettes, uncomplicated; Z59.0 Homelessness; Z98.890 Other specified postprocedural states
CPT/HCPCS: 36415; 80048; 80076; 80305; 80307; 80329; 81001; 85025; 87086; 99285; 99406; G0480; 81000-TC

== ENCOUNTER 2019-11-29 01:58 | Inpatient (IN) | payer MEDICARE, OTHER ==
[~2019-11-29] VITALS: Ht 190.5 cm; Wt 64.6 kg
--- NOTE | 2019-11-29 02:00 | NUR ---
TO ER BED 13 AMBULATORY C/O SI WITH PLAN TO DROWN SELF WITH A BOTTLE OF WATER. DENIES HI. PT AAOX4 NO ACUTE DISTRESS NOTED, RESP EVEN AND UNLABORED. PLACE PT ON HOSPITAL GOWN, ALL BELONGINGS REMOVED FROM ROOM AND PLACED IN HOSPITAL LOCKER. 1:1 SITTER AT BEDSIDE FOR PT SAFETY.
--- NOTE | 2019-11-29 02:25 | NUR ---
URINE SAMPLE COLLECTED AND SENT TO LAB.
[2019-11-29 02:36] LABS: APPEARANCE,URINE CLEAR (CLEAR); BILIRUBIN,URINE NEGATIVE (NEGATIVE); BLOOD, URINE NEGATIVE Ery/uL (NEGATIVE); COLOR,URINE YELLOW (YELLOW); KETONES,URINE NEGATIVE (NEGATIVE); LEUKOCYTE ESTERASE ,URINE NEGATIVE (NEGATIVE); NITRITE, URINE NEGATIVE (NEGATIVE); PROTEIN,URINE 30 mg/dl (NEGATIVE); UGLUCOSE NEGATIVE (NEGATIVE); UROBILINOGEN,URINE 0.2 EU/dL (0.2)
[2019-11-29 02:37] LABS: BASOPHILS # (AUTO) 0.1 /CMM (0.0-0.2); BASOPHILS % (AUTO) 1.2 % (0.0-2.0); EOSINOPHILS % (AUTO) 1.3 % (0.0-6.0); HEMATOCRIT 46 % (39-51); HEMOGLOBIN 15.3 g/dL (13.5-17.5); LYMPHOCYTES # (AUTO) 1.5 /CMM (0.8-4.8); LYMPHOCYTES % (AUTO) 25.4 % (20.0-44.0); MEAN CORPUSCULAR HGB CONC 33 g/dl (31.0-36.0); MEAN CORPUSCULAR VOLUME 89 fL (80-96); MONOCYTES # (AUTO) 0.7 /CMM (0.1-1.30); MONOCYTES % (AUTO) 11.3 % (2.0-12.0); NEUTROPHILS # (AUTO) 3.6 /CMM (1.8-8.9); NEUTROPHILS % (AUTO) 60.8 % (43.0-81.0); PLATELET COUNT (AUTO) 234 /CMM (150-450); RED BLOOD CELL COUNT(AUTO) 5.19 MIL/uL (4.5-6.0); WHITE BLOOD COUNT (AUTO) 5.9 K/uL (4.3-11.0)
[2019-11-29 02:43] LABS: RBC,URINE 0-2 /HPF (0-2)
[2019-11-29 02:44] LABS: BACTERIA,URINE Few /HPF (None Seen); CALCIUM, SERUM 9.5 mg/dL (8.5-10.1); CARBON DIOXIDE 31 mmol/L (21-32); CHLORIDE 98 mmol/L (98-107); CREATININE 1.5 mg/dL (0.6-1.3); GLUCOSE 110 mg/dL (74-106); POTASSIUM 3.5 mmol/L (3.5-5.1); SODIUM SERUM 137 mmol/L (136-145); SQUAMOUS EPITHELIAL CELL,UR Rare /HPF (None Seen); UREA NITROGEN, BLOOD 23 mg/dL (7-18)
[2019-11-29 02:49] LABS: ALANINE AMINOTRANSFERASE 68 U/L (12-78); ALBUMIN 4.2 g/dL (3.4-5.0); ALKALINE PHOSPHATASE 82 U/L (46-116); ASPARTATE AMINOTRANSFERASE 43 U/L (15-37); BILIRUBIN,DIRECT 0.2 mg/dL (0.0-0.2); BILIRUBIN,TOTAL 0.6 mg/dL (0.2-1.0)
[2019-11-29 02:50] LABS: ACETAMINOPHEN 0 ug/ml (10-30); ALCOHOL, BLOOD < 3 mg/dL (0-0); SALICYLATE 1.9 mg/dL (2.8-20.0)
--- NOTE | 2019-11-29 03:58 | NUR ---
Patient is resting comfortably in bed with eyes closed. Easily aroused. VSS.
--- NOTE | 2019-11-29 05:17 | NUR ---
PT RESTING COMFORTABLE. VSS. PROVIDED WITH BLANKET.
--- NOTE | 2019-11-29 05:37 | NUR ---
CLINICAL FAXED TO [facility] FOR VOLUNTARY PSYCH ADMISSION.
--- NOTE | 2019-11-29 06:06 | NUR ---
PT ASLEEP, NO ACUTE DISTRESS NOTED, RESP EVEN AND UNLABORED. NO PAIN OR DISCOMFORT NOTED. CALL LIGHT WITHIN REACH. 1:1 SITTER REMAINS AT BEDSIDE.
--- NOTE | 2019-11-29 06:20 | NUR ---
TRANSFER INFO: ACCEPTING DR: JALEEL AND TONIO ROOM # UPON REPORT [phone]
--- NOTE | 2019-11-29 06:27 | NUR ---
REPORT GIVEN, SHARON RAMIREZ [facility]
--- NOTE | 2019-11-29 06:31 | NUR ---
CALLED INTAKE TO VERIFY PT PLACEMENT PER CJ PT WILL GO TO [facility].
--- NOTE | 2019-11-29 06:58 | NUR ---
[facility] 0830 TRIP # [id number]
--- NOTE | 2019-11-29 07:18 | NUR ---
ENDORSEMENT RECEIVED FROM PAZ RAMIREZ FOR IVONNE. PATIENT IN BED ASLEEP, EASILY AROUSABLE BY VOICE. SITTER AT BEDSIDE. WILL CONTINUE TO MONITOR ACCORDINGLY
--- NOTE | 2019-11-29 10:02 | NUR ---
[facility] [phone] NEW ETA 1033
[2019-11-29] MEDS ORDERED: QUET200T PO (11:02)
[2019-11-29] MEDS ORDERED: BUPR-96 PO (11:02)
[2019-11-29] MEDS ORDERED: LORA-259 PO (11:02)
--- NOTE | 2019-11-29 11:05 | NUR ---
report given to Zulema RAMIREZ of [facility]
--- NOTE | 2019-11-29 11:13 | NUR ---
[facility] STILL NOT HERE.
--- NOTE | 2019-11-29 12:30 | NUR ---
GPS/RN-NOTES PATIENT BROUGHT IN THE UNIT BY ER STAFF VIA HOSPITAL BED, PATIENT CAME IN AND SIGN VOLUNTARY.PATIENT AWAKE,ALERT ORIENTED X3 AMBULATORY STEADY GAIT. PATIENT DENIES SI/HI ,NO ACUTE DISTRESS NOTED.UPON FACE TO FACE INTERVIEW PATIENT ALERT ORIENTED X3, ANXIOUS WANTED TO SMOKE. EXPLAINED TO THE PATIENT THAT THIS IS NON SMOKING FACILITY. PATIENT DENIES SI/HI AT THIS TIME.CONTRABAND AND FULL BODY ASSESSMENT DONE. PATIENT'S RIGHT COPY WAS GIVEN TO THE PATIENT. ORIENTED IN THE UNIT AND UNIT POLICIES. DR. KONG AND GENEVIEVE NOLAN MADE AWARE OF THE ADMISSION. WILL CONT. MONITORING FOR SAFETY AND BEHAVIOR. PER PATIENT HE DON'T HAVE A FAMILY TO NOTIFY.
--- NOTE | 2019-11-29 12:40 | NUR ---
RN-CO: Admitting orders was given by Dr Tello with a clear statement that we are not allowing the patient to smoke with the clinical trial patients. Orders noted and carried out.
--- NOTE | 2019-11-29 12:52 | NUR ---
RN-CO: Tried to call Shahzad Lei to come in the unit to assess the unit. Patient stated he has suicidal thoughts. He came here on a voluntary status. He stated to CONSTRUCTION LABORER " I am a clinical trial patient I can smoke." He is not a clinical trial patient.
[2019-11-29] MEDS ORDERED: BLOOD SUGAR DIAGNOSTIC 1 EACH STRIP IN ONE (13:00)
[2019-11-29] MEDS ORDERED: MAG HYDROX/AL HYDROX/SIMETH 30 ML UDC PO PRN (13:00)
[2019-11-29] MEDS ORDERED: ACETAMINOPHEN 325 MG TABLET PO PRN (13:00)
[2019-11-29] MEDS ORDERED: MAGNESIUM HYDROXIDE 30 ML UDC PO PRN (13:00)
[2019-11-29] MEDS: LORAZEPAM 0.5 MG TABLET PO PRN ×2 (13:36→21:23)
--- NOTE | 2019-11-29 13:37 | NUR ---
GPS/RN-NOTES PATIENT STATED" I'M VERY ANXIOUS GIVE ME ATIVAN". ATIVAN 0.5MG P.O GIVEN PRN ORDER. WILL CONT. MONITORING FOR SAFETY AND BEHAVIOR.
--- NOTE | 2019-11-29 13:47 | NUR ---
RN-CO: Patient is focused on smoking, he is insisting to go smoke. He stated " the blond petite woman in ER told me I can smoke with the clinical trial patients that is why I signed Voluntary." " I actually planned to go to [facility] because there I can smoke." He now, insisting to leave because what told him in ER contradicts to [facility] policy of NON smoking. I called Dr Tello and told him about the situation. Dr Tello ordered, that if the patient insist to leave then call Art Quique to assess the patient. Notified Art and he said he would come in the unit to asses the patient. Patient at this time denied SI, HI. Denied AH, VH.
--- NOTE | 2019-11-29 14:07 | NUR ---
RN-CO: DELANEY NAPOLES.
--- NOTE | 2019-11-29 14:15 | NUR ---
RN-CO: DELANEY GARCIA IS ASSESSING THE PATIENT.
--- NOTE | 2019-11-29 14:30 | NUR ---
GPS/RN-NOTES PATIENT IN THE DAY ROOM WATCHING TV ,CALM NO ACUTE DISTRESS NOTED.
[2019-11-29 16:00] VITALS: BP 138/76
--- NOTE | 2019-11-29 19:30 | NUR ---
GPS RN NOTE, RECEIVED PATIENT AWAKE AND IN BED, PATIENT DENIES PAIN AT THIS TIME. PATIENT BREATHING IS UNLABORED WITH EQUAL RISE AND FALL OF THE CHEST. PATIENT IS ALERT AND ORIENTED X 4 ON ROOM AIR WITH A SPOO2 97%. PATIENT IS COMPLAINT WITH MEDICATION, UNPREDICTABLE, EASILY IRRITABLE, FOCUSED ON SMOKING, AND COOPERATIVE. PATIENT DENIES SUICIDE AND HOMICIDAL IDEATIONS AT THIS TIME. PATIENT ASSISTED WITH TURNING AND REPOSITIONING Q2HR AND PRN FOR COMFORT AND CIRCULATION. PATIENT HAS NO NEEDS AT THIS TIME. PATIENT EDUCATED ON THE USE OF THE CALL LARA. PATIENT BED SIDE RAILS UP X 2 FOR SAFETY. PATIENT BED IS LOCKED AND LOW WILL CONTINUE TO MONITOR AND MAINTAIN SAFETY Q15 MIN WITH THE HELP OF STAFF.
[2019-11-29 20:00] VITALS: BP 132/69
--- NOTE | 2019-11-29 21:23 | NUR ---
GPS RN NOTE, PATIENT HAS A COMPLAINT OF FEELING ANXIOUS AND IS REQUESTING ATIVAN AT THIS TIME. PATIENT VITAL SIGNS ARE STABLE. GAVE ATIVAN 0.5 MG PO Q6HR PRN ORDERED. WILL REASSESS FOR ANXIETY AND I WILL CONTINUE TO MONITOR THIS PATIENT.
[2019-11-30] MEDS: TEMAZEPAM 7.5 MG CAPSULE PO PRN (01:12)
--- NOTE | 2019-11-30 01:12 | NUR ---
GPS RN NOTE, PATIENT HAS A COMPLAINT OF NOT BEING ABLE TO SLEEP AND IS REQUESTING RESTORIL AT THIS TIME. PATIENT VITAL SIGNS ARE STABLE. GAVE RESTORIL 7.5MG PO QHS PRN ORDERED. WILL REASSESS FOR INSOMNIA AND I WILL CONTINUE TO MONITOR THIS PATIENT.
[2019-11-30 07:11] LABS: ALBUMIN 3.1 g/dL (3.4-5.0); BILIRUBIN,TOTAL 0.3 mg/dL (0.2-1.0); CALCIUM, SERUM 8.4 mg/dL (8.5-10.1); CREATININE 1.1 mg/dL (0.6-1.3); POTASSIUM 3.9 mmol/L (3.5-5.1); TOTAL PROTEIN, SERUM 6.3 g/dL (6.4-8.2)
[2019-11-30 08:00] VITALS: BP 140/79
[2019-11-30] MEDS: NICOTINE PATCH (21MG) 21 MG PATCH.TD24 TD SCH (09:21)
--- NOTE | 2019-11-30 12:22 | NUR ---
Substance Abuse Intervention: SW attempted to conduct a substance abuse intervention with the pt regarding his cocaine abuse but the pt did not want to discuss his drug use with the SW.
--- NOTE | 2019-11-30 12:55 | NUR ---
Initial Discharge Plan: Pt is currently homeless and he would like to be discharged to a placement. SW will work with the pt and the MD regarding appropriate discharge planning. SW will form a safe and proper discharge.
--- NOTE | 2019-11-30 14:42 | NUR ---
GPS/RN-NOTES DR. KONG SEEN THE PATIENT WITH VERBAL ORDER TO CHANGE ATIVAN 0.5MG P.O TO 1MG P.O Q6HR PRN. NOTED AND CARRIED OUT.
--- NOTE | 2019-11-30 15:25 | NUR ---
Group Note: SW encouraged the pt to participate in group therapy but the pt stated that he did not want to leave his room because he was lied to about being able to smoke on the unit. Pt stated that he was feeling extremely angry and that he wanted to be left alone if no one can help him be transferred to a different hospital.
[2019-11-30 16:04] VITALS: BP 159/94
[2019-11-30] MEDS: LORAZEPAM 0.5 MG TABLET PO PRN (17:18)
--- NOTE | 2019-11-30 17:18 | NUR ---
GPS/RN-NOTES PATIENT STATED" CAN I HAVE ATIVAN I'M VERY ANXIOUS ". ATIVAN 1MG P.O GIVEN PRN ORDER. WILL CONT. MONITORING FOR SAFETY AND BEHAVIOR.
--- NOTE | 2019-11-30 18:31 | NUR ---
GPS/RN-NOTES PATIENT IN THE ROOM AWAKE ,CALM NO ACUTE DISTRESS NOTED.
[2019-11-30] MEDS ORDERED: LORAZEPAM 0.5 MG TABLET PO PRN (19:00)
--- NOTE | 2019-11-30 19:30 | NUR ---
GPS RN NOTE, RECEIVED PATIENT AWAKE AND IN BED, PATIENT DENIES PAIN AT THIS TIME. PATIENT BREATHING IS UNLABORED WITH EQUAL RISE AND FALL OF THE CHEST. PATIENT IS ALERT AND ORIENTED X 4 ON ROOM AIR WITH A SPOO2 97%. PATIENT IS COMPLAINT WITH MEDICATION, UNPREDICTABLE, EASILY IRRITABLE, FOCUSED ON SMOKING, AND IS COOPERATIVE. PATIENT DENIES SUICIDE AND HOMICIDAL IDEATIONS AT THIS TIME. PATIENT ASSISTED WITH TURNING AND REPOSITIONING Q2HR AND PRN FOR COMFORT AND CIRCULATION. PATIENT HAS NO NEEDS AT THIS TIME. PATIENT EDUCATED ON THE USE OF THE CALL LARA. PATIENT BED SIDE RAILS UP X 2 FOR SAFETY. PATIENT BED IS LOCKED AND LOW WILL CONTINUE TO MONITOR AND MAINTAIN SAFETY Q15 MIN WITH THE HELP OF STAFF.
[2019-11-30 20:00] VITALS: BP_SYST 139; BP_SYST 161; BP_DIAS 86; BP_DIAS 87
--- NOTE | 2019-11-30 20:30 | NUR ---
GPS RN NOTE, PATIENT VITAL SIGNS ARE FOLLOW B/P 161/87, TEMP 98.1, RESPIRATIONS 20, PULSE 83, SPO2 97. [facility] AND INFORMED NAKIA MIRAMONTES DNP OF MY FINDINGS. NAKIA MIRAMONTES DNP ORDERED TO GIVE HYDRALAZINE 10 MG PO Q8HR SCHEDULED AND TO GIVE AMLODIPINE BESYLATE 5 MG PO DAILY. ALL ORDERS NOTED AND CARRIED OUT. WILL REASSESS PATIENT VITAL SIGNS AND I WILL CONTINUE TO MONITOR THIS PATIENT WITH THE HELP OF STAFF.
[2019-11-30] MEDS: hydrALAZINE HCL 10 MG TABLET PO SCH (21:01)
[2019-11-30 21:44] VITALS: BP 139/86
[2019-11-30] MEDS: QUETIAPINE FUMARATE 100 MG TABLET PO SCH (21:46)
[2019-12-01] MEDS: hydrALAZINE HCL 10 MG TABLET PO SCH ×3 (05:00→20:26)
--- NOTE | 2019-12-01 05:21 | NUR ---
GPS RN NOTE, PATIENT REFUSED TO HAVE VITAL SIGNS TAKEN AND ALSO REFUSED TO TAKE HYDRALAZINE 10MG AT THIS TIME. OFFERED HYDRALAZINE 10MG THREE TIMES AND STILL PATIENT REFUSED STATING, " NO IT'S TO EARLY I DO IT AT BREAKFAST ". EDUCATED PATIENT ON THE RISKS AND BENEFITS OF TAKING AND REFUSING AFOREMENTIONED MEDICATION. WILL CONTINUE TO MONITOR THIS PATIENT WITH THE HELP OF STAFF.
[2019-12-01 08:00] VITALS: BP 115/65
[2019-12-01] MEDS: AMLODIPINE BESYLATE 5 MG TABLET PO SCH (08:13)
[2019-12-01] MEDS: SERTRALINE HCL 50 MG TABLET PO SCH (08:13)
[2019-12-01] MEDS: QUETIAPINE FUMARATE 25 MG TABLET PO SCH (08:13)
[2019-12-01] MEDS: NICOTINE PATCH (21MG) 21 MG PATCH.TD24 TD SCH (09:00)
--- NOTE | 2019-12-01 09:10 | NUR ---
GPS/RN-NOTES PATIENT REFUSED NICOTINE PATCH,STATED" I DON'T NEED IT ,IT NOT GOING TO WORK FOR ME" OFFERED X3.
--- NOTE | 2019-12-01 13:03 | NUR ---
GPS/RN-NOTES PATIENT REFUSED HYDRALAZINE HCL 10MG P.O STATED" I DON'T NEED THAT". EXPLAINED RISK AND BENEFITS BUT PATIENT STILL REFUSED. OFFERED X3
[2019-12-01 16:00] VITALS: BP 119/62
--- NOTE | 2019-12-01 19:29 | NUR ---
GPS/RN OPENING NOTES RECEIVED PATIENT IN BED, ASLEEP BUT AROUSES EASILY. IN BED, MONITORING FOR ANY CHANGES, PATIENT STAYS IN ROOM MOST OF THE TIME, MONITORING. RECEIVED ENDORSEMENT FROM AM RN FOR IVONNE.
[2019-12-01 20:00] VITALS: BP 137/71
[2019-12-01] MEDS: QUETIAPINE FUMARATE 100 MG TABLET PO SCH (21:02)
[2019-12-02] MEDS: hydrALAZINE HCL 10 MG TABLET PO SCH ×3 (06:16→21:11)
[2019-12-02 08:00] VITALS: BP 137/80
[2019-12-02] MEDS: NICOTINE PATCH (21MG) 21 MG PATCH.TD24 TD SCH (08:26)
[2019-12-02] MEDS: QUETIAPINE FUMARATE 25 MG TABLET PO SCH (08:26)
[2019-12-02] MEDS: AMLODIPINE BESYLATE 5 MG TABLET PO SCH (08:26)
[2019-12-02] MEDS: SERTRALINE HCL 50 MG TABLET PO SCH (08:28)
--- NOTE | 2019-12-02 09:00 | NUR ---
RN NOTE- PT IN ROOM, EASILY AWAKENED IRRITABLE GUARDED, PARANOID. STATED HE THINKS OF SUICIDE BUT HAS NO PLANS.'COMES AND GOES' MED COMPLIANT, INTAKE FAIR
--- NOTE | 2019-12-02 15:00 | NUR ---
RN NOTE- ANXIOUS RESTLESS. ATIVAN 1 MG GIVEN
[2019-12-02] MEDS: LORAZEPAM 0.5 MG TABLET PO PRN (15:03)
[2019-12-02 16:00] VITALS: BP 130/65
[2019-12-02 20:06] VITALS: BP 145/74
[2019-12-02] MEDS: QUETIAPINE FUMARATE 100 MG TABLET PO SCH (21:10)
[2019-12-02] MEDS: TEMAZEPAM 7.5 MG CAPSULE PO PRN (21:12)
[2019-12-03] MEDS: hydrALAZINE HCL 10 MG TABLET PO SCH ×3 (05:08→21:39)
[2019-12-03 08:00] VITALS: BP 143/80
[2019-12-03] MEDS: AMLODIPINE BESYLATE 5 MG TABLET PO SCH (08:14)
[2019-12-03] MEDS: SERTRALINE HCL 50 MG TABLET PO SCH (08:14)
[2019-12-03] MEDS: QUETIAPINE FUMARATE 25 MG TABLET PO SCH (08:14)
[2019-12-03] MEDS: NICOTINE PATCH (21MG) 21 MG PATCH.TD24 TD SCH (08:16)
--- NOTE | 2019-12-03 09:00 | NUR ---
RN NOTE- PT LETHARGIC. WANTS TO SLEEP AND BE LEFT ALONE,. DENIES ALL. MED COMPLIANT, INTAKE FAIR GUARDED
--- NOTE | 2019-12-03 13:30 | NUR ---
RN NOTE- PT AGITATED BY NEW ROOM MATE. ATIVAN 1 MG GIVEN. MOVED PT TO RM 216-1
[2019-12-03] MEDS: LORAZEPAM 0.5 MG TABLET PO PRN (13:58)
--- NOTE | 2019-12-03 15:47 | NUR ---
Group Note: CHAITANYA encouraged the pt to participate in group therapy but the pt refused and he stated that he wanted to remain in his room. Pt stated, "I am not here for group therapy. I just need to get the fuck out of here because it has been too long already since I had a cigarette. Now please figure out my discharge and get me out of here." CHAITANYA stated that referrals were sent out for the pt today and that his projected discharge date is Tuesday.
[2019-12-03 16:00] VITALS: BP 116/59
--- NOTE | 2019-12-03 16:03 | NUR ---
SNF Referral: CHAITANYA faxed a referral to [facility] with attn to Gilberto to the fax number: [phone].
[2019-12-03 20:05] VITALS: BP 137/71
[2019-12-03] MEDS: QUETIAPINE FUMARATE 100 MG TABLET PO SCH (21:39)
[2019-12-04] MEDS: hydrALAZINE HCL 10 MG TABLET PO SCH ×3 (05:55→20:49)
[2019-12-04 08:00] VITALS: BP 136/82
[2019-12-04] MEDS: NICOTINE PATCH (21MG) 21 MG PATCH.TD24 TD SCH (08:30)
[2019-12-04] MEDS: QUETIAPINE FUMARATE 25 MG TABLET PO SCH (08:30)
[2019-12-04] MEDS: AMLODIPINE BESYLATE 5 MG TABLET PO SCH (08:31)
[2019-12-04] MEDS: SERTRALINE HCL 50 MG TABLET PO SCH (08:31)
--- NOTE | 2019-12-04 10:17 | NUR ---
SNF REFERRAL: SW received a call from Beau, client coordinator at [facility] ([facility]) [address] [place] [address] P: [phone] stating that pt has been approved to the facility and will require a COVID test be done 72 hours before admissions.
--- NOTE | 2019-12-04 11:29 | NUR ---
RN NOTE: COVID-19 TEST PERFORMED AND SENT TO LAB
--- NOTE | 2019-12-04 14:25 | NUR ---
Individual Counseling: This SW met patient at bedside. However, the patient was asleep in position. The patient was not rousable by verbal cues. Patient will be invited to participate in the next therapeutic milieu.
[2019-12-04 16:00] VITALS: BP 154/92
[2019-12-04 20:09] VITALS: BP 140/95
[2019-12-04] MEDS: QUETIAPINE FUMARATE 100 MG TABLET PO SCH (21:19)
[2019-12-04] MEDS: LORAZEPAM 0.5 MG TABLET PO PRN (22:01)
--- NOTE | 2019-12-04 22:01 | NUR ---
GPS RN NOTE: ANXIETY PT. C/O OF BEING ANXIOUS. ADMINISTERED ATIVAN 1 MG PO PRN ORDERED. WILL CONTINUE TO MONITOR FOR SAFETY AND BEHAVIOR
[2019-12-05] MEDS: hydrALAZINE HCL 10 MG TABLET PO SCH ×3 (05:00→20:28)
[2019-12-05 08:00] VITALS: BP 147/65
[2019-12-05] MEDS: QUETIAPINE FUMARATE 25 MG TABLET PO SCH (08:37)
[2019-12-05] MEDS: SERTRALINE HCL 50 MG TABLET PO SCH (08:39)
[2019-12-05] MEDS: NICOTINE PATCH (21MG) 21 MG PATCH.TD24 TD SCH (08:39)
[2019-12-05] MEDS: AMLODIPINE BESYLATE 5 MG TABLET PO SCH (08:39)
[2019-12-05] MEDS: LORAZEPAM 0.5 MG TABLET PO PRN ×2 (13:13→22:04)
--- NOTE | 2019-12-05 13:13 | NUR ---
RN NOTE :PATIENT C/O ANXIETY MEDICATED WITH ATIVAN 1MG X1 WILL CONTINUE TO MONITOR.
--- NOTE | 2019-12-05 14:39 | NUR ---
INDIVIDUAL INTERVENTION: This SW met patient at bedside. However, the patient was in a position and pt did not engage in conversation with SW. Pt will be invited to participate in the next therapeutic milieu.
[2019-12-05 20:24] VITALS: BP 115/61
[2019-12-05] MEDS: QUETIAPINE FUMARATE 100 MG TABLET PO SCH (21:13)
--- NOTE | 2019-12-05 22:04 | NUR ---
GPS RN NOTE: ANXIETY PT. C/O OF BEING ANXIOUS. ADMINISTERED ATIVAN 1MG PO PRN ORDERED. WILL CONTINUE TO MONITOR FOR SAFETY AND BEHAVIOR.
[2019-12-06] MEDS: hydrALAZINE HCL 10 MG TABLET PO SCH ×3 (05:28→21:42)
[2019-12-06 08:00] VITALS: BP 112/74
[2019-12-06] MEDS: NICOTINE PATCH (21MG) 21 MG PATCH.TD24 TD SCH (08:46)
[2019-12-06] MEDS: SERTRALINE HCL 50 MG TABLET PO SCH (08:47)
[2019-12-06] MEDS: AMLODIPINE BESYLATE 5 MG TABLET PO SCH (08:47)
[2019-12-06] MEDS: QUETIAPINE FUMARATE 25 MG TABLET PO SCH (08:47)
[2019-12-06] MEDS: LORAZEPAM 0.5 MG TABLET PO PRN (09:11)
--- NOTE | 2019-12-06 09:17 | NUR ---
SNF Referral: SW faxed a referral to [facility], pt has been accepted and will be discharged on Tuesday12/10/19.
--- NOTE | 2019-12-06 10:00 | NUR ---
PT REQUESTED FOR DOUBLE PORTIONS OF HIS MEAL SINCE HE IS ALWAYS HUNGRY. PT'S HEIGHT IS 6'3" AND WEIGHS 142.8 .KIM,DRY BOX OPERATOR AWARE.
[2019-12-06 12:00] VITALS: BP 110/56
[2019-12-06 16:00] VITALS: BP 146/67
--- NOTE | 2019-12-06 16:31 | NUR ---
INDIVIDUAL INTERVENTION: Pt was asleep and not easily aroused by verbal cues.
--- NOTE | 2019-12-06 18:10 | NUR ---
PT RESTING IN BED AND WALKS IN AND OUT OF THE HALLWAY LOOKING FOR MORE FOOD TO EAT EVEN IF HE JUST FINISHED CONSUMING DOUBLE PORTIONS OF HIS EVERY MEAL. PT ADMITTED THAT HE GOT HOOKED INTO DRUGS AND HAS TO CLEAN HIMSELF AGAINST DRUGS TO BE ACCEPTED BY HIS ELDEST BROTHER, MAYOR IVELISSE DURAND OF [place] WHOM HE HASN'T SEEN AND MET FOR 23 YRS VERBALIZED BY THE PT. WILL CONTINUE TO MONITOR.
[2019-12-06 20:25] VITALS: BP 122/65
[2019-12-06] MEDS: QUETIAPINE FUMARATE 100 MG TABLET PO SCH (21:42)
[2019-12-07] MEDS: hydrALAZINE HCL 10 MG TABLET PO SCH ×3 (05:00→21:12)
[2019-12-07 08:00] VITALS: BP 127/74
[2019-12-07] MEDS: SERTRALINE HCL 50 MG TABLET PO SCH (09:04)
[2019-12-07] MEDS: NICOTINE PATCH (21MG) 21 MG PATCH.TD24 TD SCH (09:04)
[2019-12-07] MEDS: AMLODIPINE BESYLATE 5 MG TABLET PO SCH (09:04)
[2019-12-07] MEDS: QUETIAPINE FUMARATE 25 MG TABLET PO SCH (09:04)
[2019-12-07] MEDS: LORAZEPAM 0.5 MG TABLET PO PRN ×2 (14:31→22:38)
[2019-12-07 16:00] VITALS: BP 126/80
[2019-12-07 20:07] VITALS: BP 129/73
[2019-12-07] MEDS: QUETIAPINE FUMARATE 100 MG TABLET PO SCH (21:31)
--- NOTE | 2019-12-07 22:38 | NUR ---
GPS RN NOTE: ANXIETY PATIENT STATED THAT HE FEELING ANXIOUS & RESTLESS & REQUESTED TO TAKE MEDICINE FOR ANXIETY. PRN ATIVAN 1 MG PO GIVEN ORDERED. WILL CONTINUE TO MONITOR FOR SAFETY & ANY OTHER CHANGES.
[2019-12-08] MEDS: hydrALAZINE HCL 10 MG TABLET PO SCH ×3 (05:00→21:00)
[2019-12-08] MEDS: QUETIAPINE FUMARATE 25 MG TABLET PO SCH (08:23)
[2019-12-08] MEDS: AMLODIPINE BESYLATE 5 MG TABLET PO SCH (08:23)
[2019-12-08] MEDS: NICOTINE PATCH (21MG) 21 MG PATCH.TD24 TD SCH (08:23)
[2019-12-08] MEDS: SERTRALINE HCL 50 MG TABLET PO SCH (08:23)
[2019-12-08 08:30] VITALS: BP 112/76
[2019-12-08] MEDS: LORAZEPAM 0.5 MG TABLET PO PRN (14:15)
[2019-12-08 16:00] VITALS: BP 107/56
[2019-12-08 20:28] VITALS: BP 120/64
[2019-12-08] MEDS: QUETIAPINE FUMARATE 100 MG TABLET PO SCH (21:58)
[2019-12-09] MEDS: hydrALAZINE HCL 10 MG TABLET PO SCH ×3 (05:00→20:15)
--- NOTE | 2019-12-09 05:09 | NUR ---
GPS RN NOTES: PT REFUSED 0500 VITAL SIGN. UNABLE TO ADMINISTER APRESOLINE ORDERED. WILL CONTINUE TO MONITOR PT.
[2019-12-09 07:04] LABS: BASOPHILS % (AUTO) 1.2 % (0.0-2.0); EOSINOPHILS % (AUTO) 5.1 % (0.0-6.0); HEMATOCRIT 39 % (39-51); HEMOGLOBIN 12.8 g/dL (13.5-17.5); LYMPHOCYTES # (AUTO) 1.1 /CMM (0.8-4.8); LYMPHOCYTES % (AUTO) 28.6 % (20.0-44.0); MEAN CORPUSCULAR HGB CONC 33 g/dl (31.0-36.0); MEAN CORPUSCULAR VOLUME 90 fL (80-96); MONOCYTES # (AUTO) 0.5 /CMM (0.1-1.30); MONOCYTES % (AUTO) 13.7 % (2.0-12.0); NEUTROPHILS % (AUTO) 51.4 % (43.0-81.0); PLATELET COUNT (AUTO) 147 /CMM (150-450); RED BLOOD CELL COUNT(AUTO) 4.33 MIL/uL (4.5-6.0); WHITE BLOOD COUNT (AUTO) 3.8 K/uL (4.3-11.0)
[2019-12-09 07:30] LABS: ALBUMIN 3.1 g/dL (3.4-5.0); BILIRUBIN,TOTAL 0.2 mg/dL (0.2-1.0); CALCIUM, SERUM 8.6 mg/dL (8.5-10.1); CREATININE 0.8 mg/dL (0.6-1.3); MAGNESIUM 2.1 mg/dL (1.8-2.4); PHOSPHORUS 3.8 mg/dL (2.5-4.9); POTASSIUM 3.9 mmol/L (3.5-5.1); TOTAL PROTEIN, SERUM 6.4 g/dL (6.4-8.2)
[2019-12-09 08:00] VITALS: BP 120/68
[2019-12-09] MEDS: AMLODIPINE BESYLATE 5 MG TABLET PO SCH (08:28)
[2019-12-09] MEDS: SERTRALINE HCL 50 MG TABLET PO SCH (08:28)
[2019-12-09] MEDS: QUETIAPINE FUMARATE 25 MG TABLET PO SCH (08:28)
[2019-12-09] MEDS: NICOTINE PATCH (21MG) 21 MG PATCH.TD24 TD SCH (08:28)
--- NOTE | 2019-12-09 09:11 | NUR ---
GPS RN NOTE: PATIENT RESTING IN THE BED AWAKE, ALERT, AMBULATORY. ISOLATIVE,CALM AT THIS TIME .NO ACUTE DISTRESS NOTED. COMPLIANT WITH AM MEDICATIONS.DENIES SI/HI ALL NEEDS ATTENDED AND ANTICIPATED. WILL CONTINUE MONITORING Q15 MINS. FOR SAFETY AND BEHAVIOR.
[2019-12-09] MEDS: LORAZEPAM 0.5 MG TABLET PO PRN (12:14)
--- NOTE | 2019-12-09 12:15 | NUR ---
GPS RN NOTE: ANXIETY PATIENT STATED FEELING ANXIOUS REQUESTED MEDICINE FOR ANXIETY. PRN ATIVAN 1 MG PO GIVEN ORDERED. WILL CONTINUE TO MONITOR FOR SAFETY & ANY OTHER CHANGES.
[2019-12-09 16:00] VITALS: BP 103/72
[2019-12-09 20:18] VITALS: BP 129/73
[2019-12-09 21:01] VITALS: BP 129/75
[2019-12-09] MEDS: QUETIAPINE FUMARATE 100 MG TABLET PO SCH (21:16)
[2019-12-10] MEDS: hydrALAZINE HCL 10 MG TABLET PO SCH ×2 (05:00→12:48)
--- NOTE | 2019-12-10 05:02 | NUR ---
GPS RN NOTES: REFUSED HYDRALAZINE PT REFUSED 0500 HYDRALAZINE 10MG MEDICATION THAT IS DUE. PT STATED, "IM SLEEPING. NO NOT NOW!" EXPLAIN RISKS AND BENEFITS. PT STILL REFUSED X3. PT INCREASED AGITATION. NO S/S OF RESP DISTRESS. BREATHING EVEN AND UNLABORED. NO PAIN AT THIS TIME. CONTINUE TO MONITOR.
[2019-12-10 08:00] VITALS: BP 118/76
[2019-12-10] MEDS: NICOTINE PATCH (21MG) 21 MG PATCH.TD24 TD SCH (08:18)
[2019-12-10] MEDS: QUETIAPINE FUMARATE 25 MG TABLET PO SCH (08:18)
[2019-12-10] MEDS: SERTRALINE HCL 50 MG TABLET PO SCH (08:18)
[2019-12-10] MEDS: AMLODIPINE BESYLATE 5 MG TABLET PO SCH (08:19)
--- NOTE | 2019-12-10 08:59 | NUR ---
DISCHARGE NOTE: Pt will be discharged to [facility] located at [address] [place] [id number]; ([phone]). Pt will be transported via [facility] at 1PM. Pt is homeless and does not have anyone to contact regarding the discharge. Pts mood is euthymic with congruent affect. Pt denied visual/auditory hallucinations and denied suicidal/homicidal ideation. Pt will address his substance use with Psychiatrist: Dr. Tello ([address], [address] [place] [address]; ) and Financial Service Professional: Dr. Galvez ([address] [place] [address]; ). The multidisciplinary exit care form was done, printed, signed, and given to the patient.
--- NOTE | 2019-12-10 09:00 | NUR ---
RN NOTE- PT IN ROOM AND IN [place]. INTERACTIVE [facility] CONTACT DENIES SI HI AH VH A BIT GUARDED AND PARANOID. SHOWERING AND PERFORMING ADLS, MED COMPLIANT INTAKE GOOD
[2019-12-10 16:00] VITALS: BP 129/69
[2019-12-10] MEDS: LORAZEPAM 0.5 MG TABLET PO PRN (16:53)
--- NOTE | 2019-12-10 16:53 | NUR ---
RN NOTE- ANXIETY STATED BY PT. ATIVAN 1 MG GIVEN
--- NOTE | 2019-12-10 17:30 | NUR ---
RN NOTE- PT DC AT THIS TIME TO [facility] VIA AMBULANCE AND GURNEY. PT DC PLANNING AND AFTERCARE REVIEWED W PT AND AMBULANCE STAFF. VERBALIZED UNDERSTANDING. VS STABLE, PT ALERT ORIENTED X 4. DENIES SI HI AH VH AT PRESENT. VALUABLES RETURNED TO PT. SKIN INTACT NO PHOTOS REQUIRED. REPORT CALLED IN TO HENRIQUE RAMIREZ AT FACILITY. ID [id number] REMOVED AND ESCORTED OFF UNIT.
== END 2019-12-10 17:30 | DRG 885 ==
LOC: ER 01:58 → GPS 11:28
PROVIDERS: ADMIT Psychiatry & Neurology Psychiatry; ATTEND Nurse Practitioner Acute Care
DX: F25.0 Schizoaffective disorder, bipolar type (principal); N17.0 Acute kidney failure with tubular necrosis; R45.851 Suicidal ideations; F29 Unspecified psychosis not due to a substance or known physiological condition; F41.9 Anxiety disorder, unspecified; F17.210 Nicotine dependence, cigarettes, uncomplicated; F19.90 Other psychoactive substance use, unspecified, uncomplicated; E86.0 Dehydration; F14.10 Cocaine abuse, uncomplicated; F15.10 Other stimulant abuse, uncomplicated; R74.0 Nonspecific elevation of levels of transaminase and lactic acid dehydrogenase [LDH]; F12.10 Cannabis abuse, uncomplicated; Z59.0 Homelessness; Z91.14 Patient's other noncompliance with medication regimen
CPT/HCPCS: 36415; 80048-TC; 80053-TC; 80061-TC; 80076-TC; 80305; 81000-TC; 82962-TC; 83735-TC; 84100-TC; 85025-TC; 87081-TC; 87086-TC; G0480; J7030; U0003-CS

== ENCOUNTER 2020-01-02 19:09 | Emergency (ER) | payer MEDICARE, OTHER ==
[~2020-01-02] VITALS: Ht 188 cm; Wt 68.0 kg
--- NOTE | 2020-01-02 19:21 | NUR ---
PT AAOX4. AMBULATORY WITH STEADY GAIT. BIBSELF C/O SUICIDAL IDEATION +PLAN TO DROWN. PT PLACED ON MONITOR AND PULSE OX. VSS. NO ACUTE DISTRESS NOTED. SKIN WARM AND INTACT. PT PLACED IN GOWN, ON MONITOR AND PULSE OX. PT BELONGINGS PLACED IN LOCKER. AWAITING MD FOR EVAL AND ORDERS.
[2020-01-02 19:49] LABS: BASOPHILS # (AUTO) 0.1 /CMM (0.0-0.2); BASOPHILS % (AUTO) 0.9 % (0.0-2.0); EOSINOPHILS % (AUTO) 0.7 % (0.0-6.0); HEMATOCRIT 42 % (39-51); HEMOGLOBIN 13.9 g/dL (13.5-17.5); LYMPHOCYTES # (AUTO) 1.3 /CMM (0.8-4.8); LYMPHOCYTES % (AUTO) 16.2 % (20.0-44.0); MEAN CORPUSCULAR HGB CONC 34 g/dl (31.0-36.0); MEAN CORPUSCULAR VOLUME 89 fL (80-96); MONOCYTES % (AUTO) 12.8 % (2.0-12.0); NEUTROPHILS # (AUTO) 5.4 /CMM (1.8-8.9); NEUTROPHILS % (AUTO) 69.4 % (43.0-81.0); PLATELET COUNT (AUTO) 208 /CMM (150-450); RED BLOOD CELL COUNT(AUTO) 4.66 MIL/uL (4.5-6.0); WHITE BLOOD COUNT (AUTO) 7.8 K/uL (4.3-11.0)
[2020-01-02 19:57] LABS: APPEARANCE,URINE Clear (CLEAR); BILIRUBIN,URINE Negative (NEGATIVE); BLOOD, URINE Negative Ery/uL (NEGATIVE); KETONES,URINE Trace (NEGATIVE); LEUKOCYTE ESTERASE ,URINE Negative (NEGATIVE); NITRITE, URINE Negative (NEGATIVE); PH,URINE 5.5 (5.0-8.0); PROTEIN,URINE 30 mg/dl (NEGATIVE); UGLUCOSE Negative (NEGATIVE); UROBILINOGEN,URINE 0.2 EU/dL (0.2)
[2020-01-02 19:59] LABS: COLOR,URINE AMBER (YELLOW)
[2020-01-02 20:04] LABS: CALCIUM, SERUM 9.5 mg/dL (8.5-10.1); CARBON DIOXIDE 30 mmol/L (21-32); CHLORIDE 102 mmol/L (98-107); CREATININE 1.1 mg/dL (0.6-1.3); GLUCOSE 93 mg/dL (74-106); POTASSIUM 4.6 mmol/L (3.5-5.1); SODIUM SERUM 139 mmol/L (136-145); UREA NITROGEN, BLOOD 25 mg/dL (7-18)
[2020-01-02 20:10] LABS: BACTERIA,URINE None seen /HPF (None Seen); RBC,URINE NONE SEEN /HPF (0-2); SQUAMOUS EPITHELIAL CELL,UR None Seen /HPF (None Seen); WBC,URINE NONE SEEN /HPF (0-3)
[2020-01-02 20:11] LABS: URINE AMORPHOUS PHOSPHATES Moderate /HPF (None Seen)
[2020-01-02 20:16] LABS: ALANINE AMINOTRANSFERASE 43 U/L (12-78); ALBUMIN 4.3 g/dL (3.4-5.0); ALKALINE PHOSPHATASE 70 U/L (46-116); ASPARTATE AMINOTRANSFERASE 41 U/L (15-37); BILIRUBIN,DIRECT 0.3 mg/dL (0.0-0.2); BILIRUBIN,TOTAL 0.8 mg/dL (0.2-1.0)
[2020-01-02 20:17] LABS: ACETAMINOPHEN < 10 ug/ml (10-30); ALCOHOL, BLOOD < 3 mg/dL (0-0); SALICYLATE 1.8 mg/dL (2.8-20.0)
[2020-01-02] MEDS ORDERED: HYDR-4384 PO (20:24)
[2020-01-02] MEDS ORDERED: LORA-259 PO (20:24)
--- NOTE | 2020-01-02 20:59 | NUR ---
CRISIS TEAM AT BEDSIDE
[2020-01-02 21:00] VITALS: BP 139/90
--- NOTE | 2020-01-02 22:15 | NUR ---
Pt accpeted to [facility]. Dr Champion. # for report [phone]
--- NOTE | 2020-01-02 22:21 | NUR ---
[facility] ambulance called for S transport. ETA [id number]
--- NOTE | 2020-01-02 22:42 | NUR ---
Report given to Annabel RAMIREZ for continuation of care.
--- NOTE | 2020-01-02 22:53 | NUR ---
REPORT GIVEN TO [facility] FOR TRANSPORTATION [facility]
== END 2020-01-02 23:11 ==
LOC: ER 19:13
DX: R45.851 Suicidal ideations (principal); F19.10 Other psychoactive substance abuse, uncomplicated; F32.9 Major depressive disorder, single episode, unspecified; F20.9 Schizophrenia, unspecified; Z98.890 Other specified postprocedural states; Z79.899 Other long term (current) drug therapy
CPT/HCPCS: 36415; 80048; 80076; 80305; 80307; 80329; 81001; 85025; 99285; G0480; 81000-TC; 87081-TC

== ENCOUNTER 2020-01-11 00:57 | Emergency (ER) | payer MEDICARE, OTHER ==
[~2020-01-11] VITALS: Ht 188 cm; Wt 68.0 kg
[~2020-01-11 00:57] MED LIST: HYDR-4384 PO; LORA-259 PO
--- NOTE | 2020-01-11 01:10 | NUR ---
PT AAOX4. AMBULATORY WITH STEADY GAIT. BIBSELF C/O +SI PLANS TO OD ON PILLS, -HI. REQUESTING VOL ADMIT TO PSYCH FACILITY. PLACED IN GOWN, ON MONITOR, AND PULSE OX. VSS. BELONINGS PLACED IN LOCKER. AWAITING MD FOR EVAL AND ORDERS.
--- NOTE | 2020-01-11 01:23 | NUR ---
CLINICAL TRIAL DATA MANAGER, KELECHI, IS AT THE BEDSIDE DRAWING BLOOD.
[2020-01-11 01:43] LABS: BASOPHILS # (AUTO) 0.1 /CMM (0.0-0.2); BASOPHILS % (AUTO) 2.1 % (0.0-2.0); EOSINOPHILS % (AUTO) 1.1 % (0.0-6.0); HEMATOCRIT 38 % (39-51); HEMOGLOBIN 12.6 g/dL (13.5-17.5); LYMPHOCYTES # (AUTO) 1.1 /CMM (0.8-4.8); LYMPHOCYTES % (AUTO) 22.3 % (20.0-44.0); MEAN CORPUSCULAR HGB CONC 33 g/dl (31.0-36.0); MEAN CORPUSCULAR VOLUME 89 fL (80-96); MONOCYTES # (AUTO) 0.4 /CMM (0.1-1.30); MONOCYTES % (AUTO) 8.8 % (2.0-12.0); NEUTROPHILS # (AUTO) 3.1 /CMM (1.8-8.9); NEUTROPHILS % (AUTO) 65.7 % (43.0-81.0); PLATELET COUNT (AUTO) 174 /CMM (150-450); RED BLOOD CELL COUNT(AUTO) 4.24 MIL/uL (4.5-6.0); WHITE BLOOD COUNT (AUTO) 4.8 K/uL (4.3-11.0)
[2020-01-11 01:46] LABS: APPEARANCE,URINE SL CLOUDY (CLEAR); BILIRUBIN,URINE MODERATE (NEGATIVE); BLOOD, URINE NEGATIVE Ery/uL (NEGATIVE); COLOR,URINE DARK YELLO (YELLOW); KETONES,URINE 15 (NEGATIVE); LEUKOCYTE ESTERASE ,URINE NEGATIVE (NEGATIVE); NITRITE, URINE NEGATIVE (NEGATIVE); PH,URINE 5.5 (5.0-8.0); PROTEIN,URINE 30 mg/dl (NEGATIVE); UGLUCOSE NEGATIVE (NEGATIVE)
[2020-01-11 02:00] LABS: ALANINE AMINOTRANSFERASE 47 U/L (12-78); ALBUMIN 4.1 g/dL (3.4-5.0); ALCOHOL, BLOOD < 3 mg/dL (0-0); ALKALINE PHOSPHATASE 52 U/L (46-116); ASPARTATE AMINOTRANSFERASE 34 U/L (15-37); BILIRUBIN,DIRECT 0.4 mg/dL (0.0-0.2); BILIRUBIN,TOTAL 0.8 mg/dL (0.2-1.0); CALCIUM, SERUM 8.9 mg/dL (8.5-10.1); CARBON DIOXIDE 25 mmol/L (21-32); CHLORIDE 101 mmol/L (98-107); CREATININE 1.1 mg/dL (0.6-1.3); GLUCOSE 146 mg/dL (74-106); POTASSIUM 3.5 mmol/L (3.5-5.1); SALICYLATE 2.8 mg/dL (2.8-20.0); SODIUM SERUM 137 mmol/L (136-145); TOTAL PROTEIN, SERUM 7.5 g/dL (6.4-8.2); UREA NITROGEN, BLOOD 16 mg/dL (7-18)
[2020-01-11 02:03] LABS: ACETAMINOPHEN 0 ug/ml (10-30)
[2020-01-11 02:12] LABS: BACTERIA,URINE Few /HPF (None Seen); SQUAMOUS EPITHELIAL CELL,UR Rare /HPF (None Seen)
[2020-01-11 02:13] LABS: MUCUS,URINE Few /LPF (None Seen)
--- NOTE | 2020-01-11 02:59 | NUR ---
PT IN BED DRINKING ORANGE JUICE. VSS.
--- NOTE | 2020-01-11 04:11 | NUR ---
JAYLEN CORONADO CALLED PATIENT WILL BE ACCEPTED BY DR MARMOLEJO PATIENT WILL BE GOING TO UNIT 1 NUMBER TO GIVE REPORT
--- NOTE | 2020-01-11 04:21 | NUR ---
CALLED [facility] FOR TRANSPORTATION ETA [phone]
--- NOTE | 2020-01-11 04:32 | NUR ---
REPORT GIVEN TO ASHLEY BARILLAS FROM [facility] FOR [facility]
--- NOTE | 2020-01-11 06:51 | NUR ---
REPORT GIVEN TO [facility] UNIT [facility] FOR TRANSPORTATION
[2020-01-11 06:55] VITALS: BP 137/79
== END 2020-01-11 06:56 | disposition short-term general hospital (02) ==
LOC: ER 00:57
DX: R45.851 Suicidal ideations (principal); F17.200 Nicotine dependence, unspecified, uncomplicated; Z98.890 Other specified postprocedural states; Z79.899 Other long term (current) drug therapy
CPT/HCPCS: 36415; 80048; 80076; 80305; 80307; 80329; 81001; 85025; 87086; 99285; G0480; 81000-TC

== ENCOUNTER 2020-02-02 01:02 | Emergency (ER) | payer MEDICARE, OTHER ==
[~2020-02-02] VITALS: Ht 182.9 cm; Wt 68.0 kg
--- NOTE | 2020-02-02 01:35 | NUR ---
pt ambulatory to er bed 14. pt states +si plan to overdose on pills. -hi at this time. admits to coaine and alcohol use. pt aox4 rr even and unlabored. no sob noted. no nvd. no acute distress noted. pt calm and directable at this time. pt personal belongings placed in locker. security at bedside for wanding. safety precaution placed, sitter within line of sight.
[2020-02-02 01:41] LABS: BASOPHILS # (AUTO) 0.1 /CMM (0.0-0.2); BASOPHILS % (AUTO) 0.8 % (0.0-2.0); HEMATOCRIT 47 % (39-51); HEMOGLOBIN 15.5 g/dL (13.5-17.5); LYMPHOCYTES # (AUTO) 1.5 /CMM (0.8-4.8); LYMPHOCYTES % (AUTO) 24.9 % (20.0-44.0); MEAN CORPUSCULAR HGB CONC 33 g/dl (31.0-36.0); MEAN CORPUSCULAR VOLUME 90 fL (80-96); MONOCYTES # (AUTO) 0.7 /CMM (0.1-1.30); MONOCYTES % (AUTO) 11.6 % (2.0-12.0); NEUTROPHILS # (AUTO) 3.5 /CMM (1.8-8.9); NEUTROPHILS % (AUTO) 59.7 % (43.0-81.0); PLATELET COUNT (AUTO) 229 /CMM (150-450); WHITE BLOOD COUNT (AUTO) 5.9 K/uL (4.3-11.0)
[2020-02-02 01:43] LABS: APPEARANCE,URINE CLEAR (CLEAR); BILIRUBIN,URINE NEGATIVE (NEGATIVE); BLOOD, URINE NEGATIVE Ery/uL (NEGATIVE); COLOR,URINE YELLOW (YELLOW); KETONES,URINE NEGATIVE (NEGATIVE); LEUKOCYTE ESTERASE ,URINE NEGATIVE (NEGATIVE); NITRITE, URINE NEGATIVE (NEGATIVE); PROTEIN,URINE NEGATIVE (NEGATIVE); UGLUCOSE NEGATIVE (NEGATIVE); UROBILINOGEN,URINE 0.2 EU/dL (0.2)
[2020-02-02 01:53] LABS: CALCIUM, SERUM 9.6 mg/dL (8.5-10.1); CARBON DIOXIDE 31 mmol/L (21-32); CHLORIDE 103 mmol/L (98-107); CREATININE 1.2 mg/dL (0.6-1.3); GLUCOSE 94 mg/dL (74-106); POTASSIUM 3.5 mmol/L (3.5-5.1); SODIUM SERUM 139 mmol/L (136-145); UREA NITROGEN, BLOOD 18 mg/dL (7-18)
[2020-02-02 01:58] LABS: ALANINE AMINOTRANSFERASE 87 U/L (12-78); ALCOHOL, BLOOD < 3 mg/dL (0-0); ALKALINE PHOSPHATASE 79 U/L (46-116); ASPARTATE AMINOTRANSFERASE 61 U/L (15-37); BILIRUBIN,DIRECT 0.2 mg/dL (0.0-0.2); BILIRUBIN,TOTAL 0.4 mg/dL (0.2-1.0); SALICYLATE 3.2 mg/dL (2.8-20.0)
[2020-02-02 02:02] LABS: ACETAMINOPHEN 0 ug/ml (10-30)
--- NOTE | 2020-02-02 02:56 | NUR ---
Patient is resting comfortably in bed with eyes closed. Easily aroused. VSS
--- NOTE | 2020-02-02 06:21 | NUR ---
PT DENIES SI AND HI.
[2020-02-02 06:56] VITALS: BP 127/71
--- NOTE | 2020-02-02 06:57 | NUR ---
Patient discharged to home in stable condition. Written and verbal after care instructions given. Patient verbalizes understanding of instruction. Pt cleared by crisis team.
== END 2020-02-02 07:16 | disposition home or self-care (01) ==
LOC: ER 01:05
DX: R45.851 Suicidal ideations (principal); F19.10 Other psychoactive substance abuse, uncomplicated; F17.200 Nicotine dependence, unspecified, uncomplicated; Z98.890 Other specified postprocedural states; Z79.899 Other long term (current) drug therapy
CPT/HCPCS: 36415; 80048; 80076; 80305; 80307; 80329; 81001; 85025; 99285; G0480; 81000-TC

== ENCOUNTER 2023-10-04 23:03 | Inpatient (IN) | payer MEDICARE, OTHER ==
[~2023-10-04] VITALS: Ht 188 cm; Wt 66.3 kg
[2023-10-05 00:09] LABS: APPEARANCE,URINE TURBID (CLEAR); BILIRUBIN,URINE NEGATIVE (NEGATIVE); BLOOD, URINE 2+ Ery/uL (NEGATIVE); COLOR,URINE DARK YELLOW (YELLOW); KETONES,URINE NEGATIVE (NEGATIVE); LEUKOCYTE ESTERASE ,URINE 3+ (NEGATIVE); NITRITE, URINE NEGATIVE (NEGATIVE); PH,URINE 8.5 (5.0-8.0); PROTEIN,URINE 2+ mg/dl (NEGATIVE); UGLUCOSE NEGATIVE (NEGATIVE)
[2023-10-05 00:16] LABS: BASOPHILS % (AUTO) 0.1 % (0.0-2.0); HEMATOCRIT 35 % (39-51); HEMOGLOBIN 11.4 g/dL (13.5-17.5); LYMPHOCYTES # (AUTO) 0.4 K/uL (0.8-4.8); LYMPHOCYTES % (AUTO) 4.7 % (20.0-44.0); MEAN CORPUSCULAR HEMOGLOBIN 29 PG (26.0-33.0); MEAN CORPUSCULAR HGB CONC 33 g/dl (31.0-36.0); MEAN CORPUSCULAR VOLUME 89 fL (80-96); MONOCYTES # (AUTO) 0.9 K/uL (0.1-1.30); MONOCYTES % (AUTO) 11.2 % (2.0-12.0); NEUTROPHILS # (AUTO) 6.9 K/uL (1.8-8.9); PLATELET COUNT (AUTO) 253 K/uL (150-450); RED BLOOD CELL COUNT(AUTO) 3.88 MIL/uL (4.5-6.0); RED CELL DISTRIBUTION WIDTH 15.3 % (11.5-15.0); WHITE BLOOD COUNT (AUTO) 8.2 K/uL (4.3-11.0)
[2023-10-05 00:16] LABS: ADD URINE CULTURE YES; BACTERIA,URINE Moderate /HPF (None Seen); SQUAMOUS EPITHELIAL CELL,UR Few /HPF (None Seen); WBC,URINE TOO NUMEROUS TO COUN /HPF (0-3)
[2023-10-05 00:19] LABS: ALANINE AMINOTRANSFERASE 25 U/L (12-78); ALBUMIN 2.2 g/dL (3.4-5.0); ALCOHOL, BLOOD < 3 mg/dL (0-10); ALKALINE PHOSPHATASE 110 U/L (46-116); ASPARTATE AMINOTRANSFERASE 32 U/L (15-37); BILIRUBIN,DIRECT 0.5 mg/dL (0.0-0.2); CALCIUM, SERUM 8.6 mg/dL (8.5-10.1); CARBON DIOXIDE 23 mmol/L (21-32); CHLORIDE 98 mmol/L (98-107); CREATININE 1.4 mg/dL (0.6-1.3); GLUCOSE 112 mg/dL (74-106); POTASSIUM 3.9 mmol/L (3.5-5.1); SODIUM SERUM 136 mmol/L (136-145); TOTAL PROTEIN, SERUM 7.3 g/dL (6.4-8.2); UREA NITROGEN, BLOOD 29 mg/dL (7-18)
[2023-10-05 00:21] LABS: SALICYLATE 2.2 mg/dL (2.8-20.0)
[2023-10-05 00:22] LABS: ACETAMINOPHEN < 2 ug/ml (10-30)
[2023-10-05 00:25] LABS: AMPHETAMINE, URINE POSITIVE (NEGATIVE); BARBITURATE, URINE NEGATIVE (NEGATIVE); BENZODIAZEPINE, URINE NEGATIVE (NEGATIVE); CANNABINOID, URINE POSITIVE (NEGATIVE); COCCAINE, URINE POSITIVE (NEGATIVE); OPIATE, URINE NEGATIVE (NEGATIVE); PHENCYCLIDINE SCREEN,URINE POSITIVE (NEGATIVE)
[2023-10-05] MEDS ORDERED: CIPROFLOXACIN HCL 500 MG TABLET ONE (00:36)
[2023-10-05] MEDS: CIPROFLOXACIN HCL 500 MG TABLET PO ONE (00:39)
[2023-10-05] MEDS ORDERED: QUETIAPINE FUMARATE 100 MG TABLET ONE (01:52)
[2023-10-05] MEDS: QUETIAPINE FUMARATE 100 MG TABLET PO ONE (01:54)
[2023-10-05] MEDS ORDERED: CIPR-262 PO (03:31)
[2023-10-05] MEDS ORDERED: NALOXONE PREFILLED SYRINGE 2 MG/2 ML SYRINGE ONE (05:00)
[2023-10-05] MEDS: NALOXONE PREFILLED SYRINGE 2 MG/2 ML SYRINGE IV ONE (05:26)
[2023-10-05] MEDS: IV NS 0.9% 1,000 ML BAG IV ONE (07:50)
[2023-10-05] MEDS ORDERED: CEFTRIAXONE 1GM BAG (ER ONLY) 50 ML IV ONE (07:52)
[2023-10-05] MEDS: CEFTRIAXONE 1GM BAG (ER ONLY) 50 ML IV ONE (08:19)
[2023-10-05 08:22] LABS: LACTIC ACID 1.4 mmol/L (0.4-2.0)
[2023-10-05 08:40] LABS: INR 1.19 (0.91-1.10); PARTIAL THROMBOPLASTIN TIME 33.5 SEC (24.3-34.3); PROTHROMBIN TIME 12.5 SECS (9.2-11.1)
[2023-10-05] MEDS: AZITHROMYCIN 500 MG in IV D5W 250 ML IV ONE (09:38)
[2023-10-05 12:00] VITALS: BP 103/63; TEMP 97.2; O2SAT 93
[2023-10-05] MEDS ORDERED: LORAZEPAM INJ 2 MG/ML VIAL IV PRN (13:30)
[2023-10-05] MEDS ORDERED: ONDANSETRON HCL/PF 4 MG/2 ML VIAL IVP PRN (13:30)
[2023-10-05] MEDS ORDERED: IV D5/ 0.9% NACL 1,000 ML IV PRN (13:30)
[2023-10-05] MEDS: ENOXAPARIN SODIUM 40 MG/0.4 ML DISP.SYRIN SQ SCH (14:00)
[2023-10-05] MEDS ORDERED: CEFTRIAXONE 1 G in IV D5W 50 ML IV SCH (14:00)
[2023-10-05] MEDS: Thiamine 100 MG in IV D5W 50 ML IV SCH (14:26)
[2023-10-05] MEDS: Folic acid 1 MG in IV D5W 50 ML IV SCH (14:26)
[2023-10-05 16:00] VITALS: BP 105/58; TEMP 97.5; O2SAT 95
[2023-10-05 20:00] VITALS: BP 152/69; O2SAT 94
[2023-10-05] MEDS: QUETIAPINE FUMARATE 25 MG TABLET PO PRN (22:31)
[2023-10-06] MEDS: CEFTRIAXONE 1 G in IV D5W 50 ML IV SCH (08:00)
[2023-10-06] MEDS: PANTOPRAZOLE 40 MG TABLET.DR PO SCH (08:26)
[2023-10-06] MEDS: ENSURE ENLIVE 237 ML LIQUID (VANILLA) PO SCH (08:27)
[2023-10-06] MEDS: SERTRALINE HCL 25 MG TABLET PO SCH (08:27)
[2023-10-06] MEDS: QUETIAPINE FUMARATE 25 MG TABLET PO SCH (08:27)
[2023-10-06] MEDS ORDERED: Z GUARD REMEDY 4 OZ OINT TP PRN (09:30)
[2023-10-06] MEDS: Z GUARD REMEDY 4 OZ OINT TP SCH (09:58)
[2023-10-06] MEDS: CLOTRIMAZOLE 1% 15 GM TUBE TP SCH (09:58)
[2023-10-06] MEDS: LEVOFLOXACIN (250MG) 250 MG TABLET PO SCH (12:23)
[2023-10-06] MEDS: THIAMINE HCL 100 MG TABLET PO SCH (13:45)
[2023-10-06] MEDS: FOLIC ACID 1 MG TABLET PO SCH (13:46)
[2023-10-06] MEDS ORDERED: SERT25TA PO (15:33)
[2023-10-06] MEDS ORDERED: THIA100T74 PO (15:33)
[2023-10-06] MEDS ORDERED: QUET25TA PO ×2 (15:33)
[2023-10-06] MEDS ORDERED: LACT-246 PO (15:33)
[2023-10-06] MEDS ORDERED: ENOX40DI SQ (15:33)
[2023-10-06] MEDS ORDERED: CLOT15CR5 TP (15:33)
[2023-10-06] MEDS ORDERED: ALLA266C2 TP (15:33)
[2023-10-06] MEDS ORDERED: FOLI0.4T6 PO (15:33)
[2023-10-06] MEDS ORDERED: PANT40TA2 PO (15:33)
[2023-10-06] MEDS ORDERED: QUET50TA PO (15:33)
[2023-10-06] MEDS ORDERED: LEVO750T46 PO (15:33)
[2023-10-06] MEDS ORDERED: LORA2VIA6 IV (15:33)
[2023-10-06 16:21] LABS: URINE TOTAL PROTEIN 57.8 mg/dL (0-11.9)
[2023-10-06] MEDS ORDERED: QUETIAPINE FUMARATE 25 MG TABLET PO SCH (22:00)
== END 2023-10-06 15:03 | DRG 689 ==
LOC: ER 23:10 → TELE1 10-05 12:01 → MEDSG1 10-05 15:59
DX: N39.0 Urinary tract infection, site not specified (principal); G93.41 Metabolic encephalopathy; N17.9 Acute kidney failure, unspecified; R45.851 Suicidal ideations; F25.0 Schizoaffective disorder, bipolar type; Z20.822 Contact with and (suspected) exposure to COVID-19; F19.10 Other psychoactive substance abuse, uncomplicated; Z87.891 Personal history of nicotine dependence
CPT/HCPCS: 36415; 70450-TC; 71045-TC; 76770-TC; 80048-TC; 80076-TC; 81001; 82550-TC; 82570-TC; 83605-TC; 84300-TC; 84484-TC; 85025-TC; 85730-TC; 87040-TC; 87086-TC; A4223; G0378; G0480; J0456; J0696; J1650; J2310; J3411; J3490; J7030; J7042; J7060

== ENCOUNTER 2023-10-06 14:47 | Inpatient (IN) | payer MEDICARE, OTHER ==
[~2023-10-06] VITALS: Ht 182.9 cm; Wt 68.0 kg
[~2023-10-06 14:47] MED LIST changes: +CIPR-262 PO; -HYDR-4384 PO; -LORA-259 PO
[2023-10-06] MEDS ORDERED: QUET25TA PO ×2 (15:33)
[2023-10-06] MEDS ORDERED: FOLI0.4T6 PO (15:33)
[2023-10-06] MEDS ORDERED: ENOX40DI SQ (15:33)
[2023-10-06] MEDS ORDERED: QUET50TA PO (15:33)
[2023-10-06] MEDS ORDERED: CLOT15CR5 TP (15:33)
[2023-10-06] MEDS ORDERED: LORA2VIA6 IV (15:33)
[2023-10-06] MEDS ORDERED: LEVO750T46 PO (15:33)
[2023-10-06] MEDS ORDERED: SERT25TA PO (15:33)
[2023-10-06] MEDS ORDERED: LACT-246 PO (15:33)
[2023-10-06] MEDS ORDERED: PANT40TA2 PO (15:33)
[2023-10-06] MEDS ORDERED: ALLA266C2 TP (15:33)
[2023-10-06] MEDS ORDERED: THIA100T74 PO (15:33)
[2023-10-06] MEDS ORDERED: ACETAMINOPHEN 325 MG TABLET PO PRN (16:00)
[2023-10-06] MEDS ORDERED: TEMAZEPAM 7.5 MG CAPSULE PO PRN (16:00)
[2023-10-06] MEDS ORDERED: MAGNESIUM HYDROXIDE 30 ML UDC PO PRN (16:00)
[2023-10-06] MEDS ORDERED: MAG HYDROX/AL HYDROX/SIMETH 30 ML UDC PO PRN (16:00)
[2023-10-06 16:01] VITALS: BP 134/80; TEMP 98.9; O2SAT 98
[2023-10-06] MEDS: BLOOD SUGAR DIAGNOSTIC 1 EACH STRIP IN ONE (16:21)
[2023-10-06] MEDS: CLOTRIMAZOLE/BETAMETASONE DIPROPIONATE 15 GM TUBE TP SCH (17:00)
[2023-10-06] MEDS: ENSURE ENLIVE 237 ML LIQUID (VANILLA) PO SCH (17:10)
[2023-10-06] MEDS ORDERED: LIDOCAINE 5% OINT 35.44 GM TUBE TP PRN (18:30)
[2023-10-06 20:00] VITALS: BP 137/82; TEMP 97.6; O2SAT 100
[2023-10-06 20:34] LABS: BASOPHILS % (AUTO) 0.1 % (0.0-2.0); EOSINOPHILS % (AUTO) 0.1 % (0.0-6.0); HEMATOCRIT 33 % (39-51); HEMOGLOBIN 10.8 g/dL (13.5-17.5); LYMPHOCYTES # (AUTO) 0.4 K/uL (0.8-4.8); MEAN CORPUSCULAR HEMOGLOBIN 29 PG (26.0-33.0); MEAN CORPUSCULAR HGB CONC 33 g/dl (31.0-36.0); MEAN CORPUSCULAR VOLUME 87 fL (80-96); MONOCYTES # (AUTO) 0.8 K/uL (0.1-1.30); MONOCYTES % (AUTO) 13.2 % (2.0-12.0); NEUTROPHILS # (AUTO) 5.1 K/uL (1.8-8.9); NEUTROPHILS % (AUTO) 80.6 % (43.0-81.0); PLATELET COUNT (AUTO) 185 K/uL (150-450); RED BLOOD CELL COUNT(AUTO) 3.77 MIL/uL (4.5-6.0); RED CELL DISTRIBUTION WIDTH 15.1 % (11.5-15.0); WHITE BLOOD COUNT (AUTO) 6.3 K/uL (4.3-11.0)
[2023-10-06 20:46] LABS: CALCIUM, SERUM 7.9 mg/dL (8.5-10.1); CREATININE 1.4 mg/dL (0.6-1.3); POTASSIUM 3.5 mmol/L (3.5-5.1)
[2023-10-07 07:32] LABS: ALBUMIN 1.6 g/dL (3.4-5.0); BILIRUBIN,TOTAL 0.7 mg/dL (0.2-1.0); CALCIUM, SERUM 8.1 mg/dL (8.5-10.1); CREATININE 1.4 mg/dL (0.6-1.3); POTASSIUM 3.6 mmol/L (3.5-5.1)
[2023-10-07 08:00] VITALS: BP 151/98; TEMP 97.5; O2SAT 96
[2023-10-07 08:02] LABS: CHOLESTEROL 76 mg/dL (<200); HDL CHOLESTEROL 25 mg/dL (40-60); LDL 37 mg/dL (0-99); TRIGLYCERIDES 64 mg/dL (30-150)
[2023-10-07] MEDS ORDERED: LEVOFLOXACIN (750 MG) 750 MG TABLET PO SCH (09:00)
[2023-10-07] MEDS: THIAMINE HCL 100 MG TABLET PO SCH (11:00)
[2023-10-07] MEDS: LEVOFLOXACIN (250MG) 250 MG TABLET PO SCH (11:00)
[2023-10-07] MEDS: ENOXAPARIN SODIUM 40 MG/0.4 ML DISP.SYRIN SQ SCH (11:00)
[2023-10-07] MEDS: PANTOPRAZOLE 40 MG TABLET.DR PO SCH (11:01)
[2023-10-07] MEDS: FOLIC ACID 1 MG TABLET PO SCH (11:01)
[2023-10-07] MEDS: clonazePAM 0.5 MG TABLET PO PRN (11:42)
[2023-10-07] MEDS: QUETIAPINE FUMARATE 25 MG TABLET PO SCH ×2 (12:29→21:21)
[2023-10-07] MEDS: SERTRALINE HCL 25 MG TABLET PO SCH (12:29)
[2023-10-07 16:00] VITALS: BP_SYST 127; BP_SYST 139; BP_DIAS 61; BP_DIAS 90; TEMP 97.6; TEMP 98; O2SAT 100; O2SAT 98
[2023-10-07 20:00] VITALS: BP 138/91; TEMP 98.4; O2SAT 98
[2023-10-08 08:00] VITALS: BP 134/76; TEMP 98.6; O2SAT 98
[2023-10-08 16:00] VITALS: BP 137/79; TEMP 97.9; O2SAT 94
[2023-10-08 20:00] VITALS: BP 119/71; TEMP 98.2; O2SAT 98
[2023-10-09 20:00] VITALS: BP_SYST 118; BP_SYST 132; BP_DIAS 71; BP_DIAS 82; TEMP 98.1; TEMP 98.3; O2SAT 94
[2023-10-10 08:00] VITALS: BP 134/84; TEMP 97.9; O2SAT 96
[2023-10-10 16:00] VITALS: BP 114/80; TEMP 94.9; O2SAT 98
[2023-10-10 20:45] VITALS: BP 99/60; TEMP 97.9; O2SAT 98
[2023-10-11 08:00] VITALS: BP_SYST 124; BP_SYST 148; BP_DIAS 64; BP_DIAS 96; TEMP 98.1; TEMP 99.1; O2SAT 100; O2SAT 93
[2023-10-11 15:30] VITALS: BP 122/73; TEMP 98.4; O2SAT 100
[2023-10-11 21:34] VITALS: BP 133/73; TEMP 98; O2SAT 99
[2023-10-12 08:00] VITALS: BP 150/94; TEMP 98.1; O2SAT 94
[2023-10-12 16:00] VITALS: BP 131/77; TEMP 98.6; O2SAT 96
[2023-10-12 20:00] VITALS: BP 115/71; TEMP 98.3; O2SAT 99
[2023-10-12 22:18] VITALS: BP 115/71; TEMP 98.3; O2SAT 99
[2023-10-13 08:00] VITALS: BP 141/89; TEMP 97.7; O2SAT 98
== END 2023-10-13 15:30 | DRG 885 ==
LOC: GPS 14:47
PROVIDERS: ADMIT Psychiatry & Neurology Psychiatry; ATTEND Nurse Practitioner Acute Care
DX: F20.0 Paranoid schizophrenia (principal); N17.0 Acute kidney failure with tubular necrosis; G93.41 Metabolic encephalopathy; N39.0 Urinary tract infection, site not specified; R45.851 Suicidal ideations; Z73.6 Limitation of activities due to disability; D64.9 Anemia, unspecified; F17.210 Nicotine dependence, cigarettes, uncomplicated; E86.9 Volume depletion, unspecified; M89.8X9 Other specified disorders of bone, unspecified site; F19.10 Other psychoactive substance abuse, uncomplicated
CPT/HCPCS: 36415; 80048-TC; 80053-TC; 80061-TC; 82962-TC; 85025-TC; J1650